=== PATIENT | female | born 1970 | race Caucasian/White ===

== ENCOUNTER 2020-03-30 11:49 | Emergency (ER) | payer OTHER ==
--- NOTE | 2020-03-30 16:02 | ER ---
Nurse's Notes [facility] Name: Snehal Viramontes Age: 50 yrs Sex: Female : 1970 Arrival Date: 03/30/2020 Time: 11:52 Bed 9 Private MD: Lupe Pinon Diagnosis: Cutaneous abscess of left axilla;Low back pain Presentation: 03/30 12:15 Chief complaint: Patient states: 1. Left axilla abscess for 4 days. No drainage. 2. ll1 Hurt back at work, pain to left lower back for 2 days. Coronavirus screen: Proceed with normal triage. Patient denies a cough. Patient denies shortness of breath or difficulty breathing. Patient denies measured and/or subjective temperature greater than 100.4F prior to today's visit. Patient denies travel on a cruise ship or to a country the [facility] currently lists as an affected area. Patient denies contact with known and/or suspected case of COVID-19. Ebola Screen: Patient denies travel to an Ebola-affected area in the 21 days before illness onset. Initial Sepsis Screen: Does the patient meet any 2 criteria? HR > 90 bpm. No. Patient's initial sepsis screen is negative. Risk Assessment: Do you want to hurt yourself or someone else? Patient reports no desire to harm self or others. Onset of symptoms was March 26, 2020. 12:15 Method Of Arrival: Ambulatory ll1 12:15 Acuity: EH 3 ll1 Historical: - Allergies: 12:18 No Known Allergies; ll1 - PMHx: 12:18 Back pain; Umbilical hernia; DDD; ll1 - PSHx: 12:18 ; ll1 - Immunization history:: Flu vaccine is not up to date. - Social history:: Smoking status: Patient denies any tobacco usage or history of. Patient uses alcohol, only on a social basis. Patient/guardian denies using street drugs, tobacco products. Vital Signs: 12:15 BP 117 / 82; Pulse 100; Resp 17; Temp 98.0; Pulse Ox 100% ; Pain 10/10; ll1 ED Course: 11:52 Patient arrived in ED. mr 11:52 Lupe Pinon is Private Physician. mr 12:17 Triage completed. ll1 12:18 Arm band placed on Patient notified of wait time. ll1 15:30 Kirk Gerardo NP is PHCP. pm1 15:30 Pritesh Moreno MD is Attending Physician. pm1 16:02 Sonia Garcia RN is Primary Nurse. ss 16:40 No provider procedures requiring assistance completed. Patient did not have IV access ss during this emergency room visit. 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 Exp: ss 10/31/2021. Lot #: [id number]. } Route: IM; Site: left deltoid; 16:39 Follow up: Response: No adverse reaction 16:24 Drug: Lidoderm 5 % (700 mg/patch) 1 patches Route: Topical; Site: affected area; ss Outcome: 16:01 Discharge ordered by MD. pm1 16:40 Discharged to home ambulatory. ss 16:40 Condition: good 16:40 Discharge instructions given to patient, Instructed on discharge instructions, follow up and referral plans. medication usage, Demonstrated understanding of instructions, follow-up care, medications. 16:40 Patient left the ED. Signatures: Rebeca Mcmanus mr Sonia Garcia, ANGELIQUE RN Kirk Gerardo NP CHICLE GRINDER FEEDER pm1 Gissell Fink RN RN 1
--- NOTE | 2020-03-30 16:02 | EDPHYS ---
Physician Documentation [facility] Name: Snehal Viramontes Age: 50 yrs Sex: Female : 1970 Arrival Date: 03/30/2020 Time: 11:52 Bed 9 Private MD: Lupe Pinon ED Physician Pritesh Moreno HPI: 03/30 16:01 This 50 yrs old Female presents to ER via Ambulatory with complaints of pm1 Abscess, Back Pain. 16:01 The patient presents with an abscess of the left axilla. Description: raised. pm1 16:01 Onset: The symptoms/episode began/occurred 4 day(s) ago. Possible cause(s): possibly pm1 ingrown hair from shaving. Associated signs and symptoms: Pertinent negatives: discharge, drainage, fever. Modifying factors: the symptoms are alleviated by nothing, the symptoms are aggravated by attempting to squeeze and express. Severity of symptoms: in the emergency department the symptoms are actually worse. The patient has experienced similar episodes in the past, a few times, Has had left axillary abscesses in the past. The patient has not recently seen a physician. 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 No incontinence, radiating pain, numbness or tingling. Improved with positioning and worsened with movement of left lower leg and walking. Historical: - Allergies: 12:18 No Known Allergies; ll1 - PMHx: 12:18 Back pain; Umbilical hernia; DDD; ll1 - PSHx: 12:18 ; ll1 - Immunization history:: Flu vaccine is not up to date. - Social history:: Smoking status: Patient denies any tobacco usage or history of. Patient uses alcohol, only on a social basis. Patient/guardian denies using street drugs, tobacco products. ROS: 16:01 Constitutional: Negative for fever, chills, and weight loss, Cardiovascular: Negative pm1 for chest pain, palpitations, and edema, Respiratory: Negative for shortness of breath, cough, wheezing, and pleuritic chest pain, Abdomen/GI: Negative for abdominal pain, nausea, vomiting, diarrhea, and constipation. 16:01 : Negative for injury, bleeding, discharge, and swelling, MS/Extremity: Negative for injury and deformity. 16:01 Neuro: Negative for headache, weakness, numbness, tingling, and seizure. 16:01 Back: Positive for of the sacrum, pain, Negative for radiated pain. 16:01 Skin: Positive for abscess, of the left axilla, Negative for cellulitis. Exam: 16:16 Constitutional: This is a well developed, well nourished patient who is awake, alert, pm1 and in no acute distress. Head/Face: Normocephalic, atraumatic. Neck: Trachea midline, no thyromegaly or masses palpated, and no cervical lymphadenopathy. Supple, full range of motion without nuchal rigidity, or vertebral point tenderness. No Meningismus. 16:16 Skin: Warm, dry with normal turgor. Normal color with no rashes, no lesions, and no evidence of cellulitis. MS/ Extremity: Pulses equal, no cyanosis. Neurovascular intact. Full, normal range of motion. 16:16 Cardiovascular: Exam negative for acute changes, Rate: normal, Rhythm: regular, Pulses: no pulse deficits are appreciated. 16:16 Respiratory: Exam negative for acute changes, respiratory distress, shortness of breath. 16:16 Abdomen/GI: Exam negative for acute changes, Inspection: abdomen appears normal, Palpation: abdomen is soft and non-tender, in all quadrants. 16:16 Back: vertebral tenderness, is appreciated at coccyx. 16:16 Skin: left axilla with 1.5 phlegmon. Needle aspiration with sterile technique. Prepared with Betadine. No drainage or pus present. No surrounding cellulitis. 16:16 Neuro: Exam negative for acute changes, Orientation: is normal, Mentation: is normal, Motor: is normal, moves all fours, strength is 5/5 in all extremities, Sensation: is normal, no obvious gross deficits. Vital Signs: 12:15 BP 117 / 82; Pulse 100; Resp 17; Temp 98.0; Pulse Ox 100% ; Pain 10/10; ll1 MDM: 15:39 Patient medically screened. [facility] 16:01 Data reviewed: vital signs. Data interpreted: Pulse oximetry: on room air is 100 %. pm1 Interpretation: normal. Counseling: I had a detailed discussion with the patient and/or guardian regarding: the historical points, exam findings, and any diagnostic results supporting the discharge/admit diagnosis, the need for outpatient follow up, to return to the emergency department if symptoms worsen or persist or if there are any questions or concerns that arise at home. 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 Exp: ss 10/31/2021. Lot #: [id number]. } Route: IM; Site: left deltoid; 16:39 Follow up: Response: No adverse reaction 16:24 Drug: Lidoderm 5 % (700 mg/patch) 1 patches Route: Topical; Site: affected area; ss Disposition: 20:36 Co-signature as Attending Physician, Pritesh Moreno MD I agree with the assessment and cipriano plan of care. Disposition: 03/30/20 16:01 Discharged to Home. Impression: Cutaneous abscess of left axilla, Low back pain. - Condition is Stable. - Discharge Instructions: Skin Abscess, Back Pain, Adult. - Prescriptions for Lidoderm 5 % Topical adhesive patch,medicated - apply 1 patch by TRANSDERMAL route once daily As needed; 30 Transdermal Patch. Bactrim DS 800- 160 mg Oral Tablet - take 1 tablet by ORAL route every 12 hours for 10 days; 20 tablet. Tylenol- Codeine #3 300-30 mg Oral Tablet - take 2 tablets by ORAL route every 6 hours As needed; 20 tablet. Cyclobenzaprine 10 mg Oral Tablet - take 1 tablet by ORAL route every 8 hours As needed; 30 tablet. - Medication Reconciliation Form, Thank You Letter, Antibiotic Education, Prescription Opioid Use form. - Follow up: Emergency Department; When: As needed; Reason: Worsening of condition. Follow up: Private Physician; When: 2 - 3 days; Reason: Recheck today's complaints, Continuance of care, Re-evaluation by your physician. - Problem is new. - Symptoms have improved. Signatures: Pritesh Moreno MD MD cha Smirch, Shelby, RN RN Kirk Gerardo NP [employer] INTERN pm1 Gissell Fink RN RN ll1 Corrections: (The following items were deleted from the chart) 16:40 16:01 03/30/2020 16:01 Discharged to Home. Impression: Cutaneous abscess of left ss axilla; Low back pain. Condition is Stable. Forms are Medication Reconciliation Form, Thank You Letter, Antibiotic Education, Prescription Opioid Use. Follow up: Emergency Department; When: As needed; Reason: Worsening of condition. Follow up: Private Physician; When: 2 - 3 days; Reason: Recheck today's complaints, Continuance of care, Re-evaluation by your physician. Problem is new. Symptoms have improved. pm1
[2020-03-30] MEDS ORDERED: TETANUS & DIPHTHERIA TOX,ADULT 0.5 ML VIAL ONE (16:24)
[2020-03-30] MEDS ORDERED: KETOROLAC 30 MG/ML INJ ONE (16:24)
[2020-03-30] MEDS ORDERED: LIDOCAINE 4% PATCH ONE (16:24)
[2020-03-30 16:59] VITALS: BP 117/82; TEMP 98; O2SAT 100
== END 2020-03-30 16:40 | disposition home or self-care (01) ==
LOC: ER 11:49
DX: L02.412 Cutaneous abscess of left axilla (principal); Z23 Encounter for immunization
CPT/HCPCS: 90471; 90714; 96372; 99283

== ENCOUNTER 2020-05-06 11:04 | Emergency (ER) | payer OTHER ==
--- OUTSIDE RECORDS SUMMARY | 2020-05-06 12:13 | XMS REPORT | Encounter Summary ---
:1970 Author Care Team Providers Name Role Phone Bev Pinon [facility] Primary Care Provider [phone] Reason for Visit New Patient Instructions 1. Umbilical hernia 2. Right inguinal hernia inguinal hernia: care inst ructions 3. Inguinal pain Discussion Note: None recorded. Plan of Care Reminders Provider Appointments None recorded. Lab None recorded. Referral None recorded. Procedures None recorded. Surgeries None recorded. Imaging None recorded. Medications Name Start Date gabapentin 400 mg caps hydroxyzine hcl 50 mg tabs linzess 145 mcg caps methocarbamol 500 mg tabs sertraline hcl 50 mg tabs Medications Administered None recorded. Vitals Height Weight BMI Blood Pressure 5 ft 3.5 in 108.2 lbs 18.9 kg/m2 110/70 mm[Hg] Results Lab Results None recorded. Allergies Code Code System Name Reaction Severity Status Onset NKDA Problems No Known Problems Procedures Date Name Performed by 03/08/2020 CT, Abdomen + Pelvis, W/wo [facility] (Scheduling) Contrast [address] [place], [place] [id number] (Work Place) 03/08/2020 CT, Abdomen + Pelvis, W/o Contrast [facility] (Scheduling) [address] [place], [place] [id number] (Work Place) Vaccine List None recorded. Social History Tobacco Smoking Status Never Smoker Past Encounters 03/08/2020 Umbilical Hernia; Right Inguinal Hernia; Inguinal Pain Brad Walker, DO: [address] [facility] [address], [place] [address], Ph. [phone] History of Present Illness Hernia Reported By: Patient HPI: Location: right, inguinal, u mbilical port site. Quality: tender, bulging. Severity: moderate. Duration: unknown. Onset/Timing: lifting. Context: no history of chron ic liver disease, no family history of substance abuse. Alleviating factors: rest. Aggravating factors: bending over. Associated Symptoms: n o nausea, no vomiting, no swelling/redness, no dysuria, no changes in ur inary frequency, no hematuria, no nocturia, no lower back pain, tenderne ss Note: Umbilical and right inguinal hernia Review of Systems General Surgery ROS Reported By: Patient Constitutional: Constitutional: no fever, no night sweats, no significant weight gain, no significant weight loss, no exercise intolerance Eyes: Eyes: no dry eyes, no irrita tion, no vision change ENMT: Ears: no difficulty hearing, no ear pain. Nose: no frequent nosebleeds, no nose/sinus pr oblems. Mouth/Throat: no sore throat, no bleeding gums, no snoring , no dry mouth, no mouth ulcers, no oral abnormalities, no teeth problems, No Post Nasal Dripping, Constantly clearing the thro at, hiccups, itching throat, (normal) weak voice: constant Respiratory: Respiratory: no cough, no wh eezing, no shortness of breath, no coughing up blood Cardiovascular: Cardiovascular: no chest darron n, no arm pain on exertion, no shortness of breath when wal bill, no shortness of breath when lying down, no palpitations, no kn own heart murmur Gastrointestinal: Gastrointestinal: no vomitin g, normal appetite, no diarrhea, not vomiting blood, abdominal pa in Genitourinary: Genitourinary: no incontinen ce, no difficulty urinating, no hematuria, no increased freq uency Musculoskeletal: Musculoskeletal: no muscle a ches, no muscle weakness, no arthralgias/joint pain, no b ack pain, no swelling in the extremities Integumentary: Skin: no abnormal mole, no j aundice, no rashes Neurologic: Neurologic: no loss of consc iousness, no weakness, no numbness, no seizures, no dizziness, no h eadaches Physical Exam General Surgery Exam (JYoung ) Reported By: Patient Head: Head: normocephalic, atrauma tic Neck: Neck: no enlargement, no jug ular venous distention, no lymphadenopathy Breast/Thorax: Breast: unlabored Cardiovascular: Heart Auscultation: regular rate and rhythm, no murmurs, no gallops, no rubs Lungs: CTAB breath sounds normal, g ood air movement, clear to auscultation, no wheezing, no rales/crackl es, no rhonchi Back: Lumbar / Lumbosacral Spine n ormal flexion, normal extension, no spasms, palpation tenderness none Abdomen: Inspection and Palpation: so ft, non-distended, no tenderness, no masses. Hernia: right inguin al, umbilical Neurologic: Cranial Nerves: grossly inta ct Notes: Upon P/E umbilical hernia an d right inguinal hernia present. Patient was examined in multiple pos itions.
--- OUTSIDE RECORDS SUMMARY | 2020-05-06 12:13 | XMS REPORT | Continuity of Care Document ---
:[address] [facility] t Address [address] [place] [address] Care Team Providers Name Role Phone Unavailable Unavailable Unavailable Payers Payer Name Policy Type Policy Number Effective Date Expiration Date S ource Problems This patient has no known problems. Allergies, Adverse Reactions, Alerts Allergy Allergy Status Severity Reaction(s) Onset Inactive Treating Comm ents Source Name Type Date Date Clinician No Known DA Active U 2018- [facility] 0-23 Clear s 00:00: Liu 00 [facility] No Known DA Active U [facility] 2-18 [place] [facility] 00:00: d 00 [facility] No Known DA Active U 2012- [facility] 6-27 [place] [facility] 00:00: d 00 [facility] Social History Smoking Status Start Date Stop Date Source Never Smoker [facility] Medications Ordered Filled Start Stop Current Ordering Indication Dosage Frequency Signature Comments Components Source Medication Medication Date Date Medication? Clinician (SIG) Name Name gabapentin gabapentin No gabapentin [facility] 400 mg caps 400 mg caps 400 mg da caps [facility] hydroxyzine hydroxyzine No hydroxyzin [facility] hcl 50 mg hcl 50 mg e hcl 50 da tabs tabs mg tabs [facility] linzess linzess No linzess [facility] 145 mcg 145 mcg 145 mcg da caps caps caps [facility] methocarbam methocarbam No methocarba [facility] ol 500 mg ol 500 mg mol 500 da tabs tabs mg tabs [facility] sertraline sertraline No sertraline [facility] hcl 50 mg hcl 50 mg hcl 50 mg da tabs tabs tabs [facility] Vital Signs Vital Name Observation Time Observation Value Comments Source BP Diastolic 2020-03-08 00:00:00 70 mm[Hg] [facility] Height 2020-03-08 00:00:00 63.5 [in_i] [facility] BMI (Body Mass 2020-03-08 00:00:00 18.9 kg/m2 [facility] BP Systolic 2020-03-08 00:00:00 110 mm[Hg] [facility] Body Weight 2020-03-08 00:00:00 108.2 [lb_av] [facility] Procedures Procedure Date / Time Performed Performing Clinician Sour e CT, abdomen + pelvis, 2020-03-08 00:00:00 [facility] w/wo contrast Group CT, abdomen + pelvis, 2020-03-08 00:00:00 [facility] w/o contrast Group Encounters Start End Encounter Admission Attending Care Care Encounter Source Date/Time Date/Time Type Type Clinicians Facility Department ID 2020-03-08 2020-03-08 Brad [facility] [place] - [id number] M [facility] 00:00:00 00:00:00 Aaron DO: [facility] [address] [place] [address] [facility] - [address], [facility], [place] [address] , Ph. [phone] 2019-08-31 2019-08-31 Emergency E [facility] [id number] 14:54:00 14:54:00 [facility] Results Test Description Test Time Test Comments Results Result Comments Source SURGICAL SPECIMENS 2018-07-28 09:58:00 RUN DATE: 07/28/18 [facility] *LIVE* PAGE 1 RUN TIME: 957 Specimen Inquiry RUN USER: INTERFACE PATIENT: JIGNESH SILVA LOC: [place] U #: [id number] AGE/SX: 48/F ROOM: [facility] RE07/10/18REG DR: Chuckie Leija MD : 70 BED: 3 DIS: 07/26/18 STATUS: DIS IN TLOC: SPEC #: [id number] RECD: 07/25/18 STATUS: SOUEthan REQ #: [id number] GREG: 07/25/[address] [facility] [address]: Chuckie Leija MD ENTERED: 07/27/18 SP TYPE: SURG SPEC OTHR DR: No Primary or Family Physician Self Referred Ania Maynard MD, Kinjal MD Ghosh, Subrata MD Lakhani, Asif MD Loya,Darrel Solano,Nnamdi Jaimes,Waqar Rod,Tracie Barnett MD, MDORDERED: GM LEVEL 4 CODES: [id number] - RECTUM, NOS COPIES TO: No Primary or Family Physician Self Referred Ania Maynard MD [address] [place] [address] Kayla Rene MD [address] [facility] [place] [address] Marlon Davies MD [address] [facility] [address] [place] [address] Ike Collins MD [address] [place], [place] [address] [place] [address] [place] Z[place] [address] [facility] [address] [place] [address] [email or web address] CONTINUED ON NEXT PAGE RUN DATE: 07/28/18 [facility] *LIVE* PAGE 2 RUN TIME: 957 Specimen Inquiry RUN USER: INTERFACE SPEC #: [id number] PATIENT: JIGNESH SILVA #[id number] (Continued)--------- --- COPIES TO: (Continued) Nanmdi Solano MD [address], [address] [place] [address] Chuckie Leija MD [address] [place] [address] Waqar Jaimes MD [address] [facility] [address] [place] [address] Timur Rod MD [address] [place] [address] Tracie Valencia MD [address] [address] PROCEDURES: LEVEL 4 (Incomplete) TISSUES: 1. RECTUM, NOS - Rectum, bx. FINAL DIAGNOSIS Rectum, bx.: Mild chronic inflammation. GROSS AND MICROSCOPIC GROSS EXAMINATION: Received is/are the specimen/s designated with the appropriate dimensions and block designation: 1. Bx: One segment of pink-ortega tissue, measuring up to 0.4 cm. in greatest dimension. MICROSCOPIC EXAMINATION: Sections of the "Rectum, bx." reveal changes of mild chronic proctitis. A mild inflammatory infiltrate is present in the lamina propria. There is mild crypt architectural distortion. CONTINUED ON NEXT PAGE RUN DATE: 07/28/18 [facility] *LIVE* PAGE 3 RUN TIME: 957 Specimen Inquiry RUN USER: INTERFACE SPEC #: [id number] PATIENT: JIGNESH SILVA #[id number] (Continued)--------- --- POST-OP DIAGNOSIS Proctitis PRE-OP DIAGNOSIS Dysphagia, abnormal CT imaging Signed SIGNATURE ON FILE Jessica Saleem MD 07/28/18 0958 END OF REPORT SURGICAL SPECIMENS 2018-07-25 08:01:00 RUN DATE: 07/25/18 [facility] *LIVE* PAGE 1 RUN TIME: 800 Specimen Inquiry RUN USER: INTERFACE PATIENT: JIGNESH SILVA LOC: [facility] U #: [id number] AGE/SX: 48/F [place] [facility] [place]10[facility]18[facility] DR: Chuckie Leija MD : 70 BED: 1 DIS: STATUS: ADM IN TLOC: SPEC #: [id number] RECD: 07/15/18 STATUS: KRIS REJanis #: [id number] GREG: 07/15/[address] [facility] [address]: Chuckie Leija MD ENTERED: 07/25/18 SP TYPE: SURG SPEC OTHR DR: No Primary or Family Physician Self Referred Ania Maynard MD, Kinjal MD Ghosh, Subrata MD Lakhani, Asif MD Loya, Altaf MD [place],Nnamdi Jaimes,Waqar Rod,Timur Valencia,Tracie FRAZIERORDERED: LEVEL 4 CODES: [id number] - VERTEBRA, NOS COPIES TO: No Primary or Family Physician Self Referred Ania Maynard MD [address] [facility] [address] [place] [address] Kayla Rene MD [address] [place] [address] Marlon Davies MD [address] [facility] [address] [place] [address] Ike Collins MD [address] [place] [address] [place] [address] [facility] [address] [place] [address] [email or web address] CONTINUED ON NEXT PAGE RUN DATE: 07/25/18 [facility] *LIVE* PAGE 2 RUN TIME: 08 Specimen Inquiry RUN USER: INTERFACE SPEC #: [id number] PATIENT: JIGNESH SILVA #[id number] (Continued)--------- --- COPIES TO: (Continued) Nnamdi Solano MD [address] [facility] [address] [place] [address] Chuckie Leija MD [address] [place] [address] Waqar Jaimes MD [address] [facility] [address] [place] [address] Timur Rod MD [address] [place] [address] Tracie Valencia MD [address] [place] [address] PROCEDURES: GM LEVEL 4 (Incomplete) TISSUES: 1. VERTEBRA, NOS - Bone, L3, bx. FINAL DIAGNOSIS Bone, L3, bx.: Hypercellular bone marrow with slight increase in plasma cells (5%); plasma cells are polyclonal and the staining is nonspecific; AFB and GMS stains are negative for acid-fast and fungal organisms. GROSS AND MICROSCOPIC GROSS EXAMINATION: Received in formalin and labeled L3 bone biopsy is a bone biopsy with hemorrhage that measures up to 1.7 cm in greatest dimensions. Entirely submitted. MICROSCOPIC EXAMINATION: Sections of the "Bone, L3, bx." reveal changes of callus formation as well as bone marrow elements and hemorrhage. The bone marrow is hypercellular with increased plasma cells (5%). There is diffuse staining and nonspecific staining for plasma cells. AFB and GMS stains are negative for acid-fast and fungal organisms. (When special stains have been reviewed, the appropriate positive/negative controls have been reviewed and are appropriately positive/negative). CONTINUED ON NEXT PAGE RUN DATE: 07/25/18 [facility] *LIVE* PAGE 3 RUN TIME: 800 Specimen Inquiry RUN USER: INTERFACE SPEC #: [id number] PATIENT: RICARDOJIGNESH #[id number] (Continued)--------- --- POST-OP DIAGNOSIS None given PRE-OP DIAGNOSIS Depression, alcoholism Cirrhosis, neuropathy, multiple compression fractures REVIEWED BY: Signed SIGNATURE ON Jessica Burrell Elsa FRAZIER 07/25/18 0801 END OF REPORT
[2020-05-06] MEDS ORDERED: TOBRAMYCIN SULF 0.3% OPTH OINT ONE (12:27)
[2020-05-06] MEDS ORDERED: TETRACAINE HCL 0.5% 4ML OPTH ONE (12:27)
[2020-05-06] MEDS ORDERED: FLUORESCEIN SODIUM 1 MG/WRAP ONE (12:36)
--- NOTE | 2020-05-06 12:58 | EDPHYS ---
Physician Documentation [facility] Name: Snehal Viramontes Age: 50 yrs Sex: Female : 1970 Arrival Date: 05/06/2020 Time: 11:06 Bed 20 Private MD: TATIANA Physician Pritesh Moreno HPI: 05/06 12:12 This 50 yrs old Female presents to ER via Ambulatory with complaints of Eye cipriano Pain. 12:12 The patient is experiencing foreign body sensation. Onset: The symptoms/episode cipriano began/occurred 3 day(s) ago. 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 - Social history:: Smoking status: Patient denies any tobacco usage or history of. - Family history:: not pertinent. ROS: 12:12 Constitutional: Negative for fever, chills, and weight loss, ENT: Negative for injury, cipriano pain, and discharge, Neck: Negative for injury, pain, and swelling, Cardiovascular: Negative for chest pain, palpitations, and edema, Respiratory: Negative for shortness of breath, cough, wheezing, and pleuritic chest pain, Abdomen/GI: Negative for abdominal pain, nausea, vomiting, diarrhea, and constipation, Back: Negative for injury and pain, : Negative for injury, bleeding, discharge, and swelling, MS/Extremity: Negative for injury and deformity, Skin: Negative for injury, rash, and discoloration, Neuro: Negative for headache, weakness, numbness, tingling, and seizure, Psych: Negative for depression, anxiety, suicide ideation, homicidal ideation, and hallucinations, Allergy/Immunology: Negative for hives, rash, and allergies, Endocrine: Negative for neck swelling, polydipsia, polyuria, polyphagia, and marked weight changes, Hematologic/Lymphatic: Negative for swollen nodes, abnormal bleeding, and unusual bruising. 12:12 Eyes: Positive for discharge, foreign body sensation, matting, pain, tearing, of the outer aspect of conjuctiva of left eye, iris of left eye and inner aspect of conjunctiva of left eye. Exam: 12:12 Constitutional: This is a well developed, well nourished patient who is awake, alert, cipriano and in no acute distress. Head/Face: Normocephalic, atraumatic. ENT: Nares patent. No nasal discharge, no septal abnormalities noted. Tympanic membranes are normal and external auditory canals are clear. Oropharynx with no redness, swelling, or masses, exudates, or evidence of obstruction, uvula midline. Mucous membranes moist. Neck: Trachea midline, no thyromegaly or masses palpated, and no cervical lymphadenopathy. Supple, full range of motion without nuchal rigidity, or vertebral point tenderness. No Meningismus. Chest/axilla: Normal chest wall appearance and motion. Nontender with no deformity. No lesions are appreciated. Cardiovascular: Regular rate and rhythm with a normal S1 and S2. No gallops, murmurs, or rubs. Normal PMI, no JVD. No pulse deficits. Respiratory: Lungs have equal breath sounds bilaterally, clear to auscultation and percussion. No rales, rhonchi or wheezes noted. No increased work of breathing, no retractions or nasal flaring. Abdomen/GI: Soft, non-tender, with normal bowel sounds. No distension or tympany. No guarding or rebound. No evidence of tenderness throughout. Back: No spinal tenderness. No costovertebral tenderness. Full range of motion. Skin: Warm, dry with normal turgor. Normal color with no rashes, no lesions, and no evidence of cellulitis. MS/ Extremity: Pulses equal, no cyanosis. Neurovascular intact. Full, normal range of motion. Neuro: Awake and alert, GCS 15, oriented to person, place, time, and situation. Cranial nerves II-XII grossly intact. Motor strength 5/5 in all extremities. Sensory grossly intact. Cerebellar exam normal. Normal gait. Psych: Awake, alert, with orientation to person, place and time. Behavior, mood, and affect are within normal limits. 12:12 Eyes: Periorbital structures: appear normal, no acute changes, Pupils: no acute changes, equal, round, and reactive to light and accomodation, Extraocular movements: intact throughout, Conjunctiva: normal, no acute changes, Anterior chamber: normal, no acute changes, Lids and lashes: appear normal, no acute changes, funduscopic exam reveals no obvious abnormalities, no acute changes, Visual medina: no acute changes, Nystagmus: is not appreciated. Vital Signs: 11:26 BP 124 / 97; Pulse 112; Resp 16; Temp 97.7; Pulse Ox 100% on R/A; Weight 49.9 kg; ss Height 5 ft. 4 in. (162.56 cm); Pain 9/10; 13:24 BP 129 / 87; Pulse 105; Resp 17; Pulse Ox 100% on R/A; jr10 11:26 Body Mass Index 18.88 (49.90 kg, 162.56 cm) ss MDM: 12:02 Patient medically screened. [facility] 12:19 Data reviewed: vital signs, nurses notes. 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 rate is 112 beats/min, rhythm is regular, Pulse oximetry: on room air is 100 %. Counseling: I had a detailed discussion with the patient and/or guardian regarding: the historical points, exam findings, and any diagnostic results supporting the discharge/admit diagnosis, the need for outpatient follow up, for definitive care, an opthalmologist. 12:58 ED course: explained to pt importance of follow up, return if symptoms worsens. [facility] 05/06 12:12 Order name: Eye Tray; Complete Time: 12:15 [facility] Administered Medications: 12:46 Drug: Tetracaine Drops 0.5 % 1 drops {Note: administered via Dr Moreno.} Route: jr10 Ophthalmic; Site: left eye; 13:13 Follow up: Response: No adverse reaction [facility] 12:46 Drug: Tobrex 0.3 % 1 application {Note: administered via Dr Moreno.} Route: jr10 Ophthalmic; Site: left eye; 13:13 Follow up: Response: No adverse reaction [facility] Disposition: 05/06/20 12:57 Discharged to Home. Impression: Ocular pain, left eye, Conjunctivitis. - Condition is Stable. - Discharge Instructions: Eye Foreign Body, Bacterial Conjunctivitis, Zijj-dt-Palv. - Prescriptions for Tobrex 0.3 % Ophthalmic ointment - apply 1 inch ribbon by OPHTHALMIC route 3 times per day; 3.5 gram. Tylenol- Codeine #3 300-30 mg Oral Tablet - take 2 tablets by ORAL route every 6 hours As needed; 20 tablet. - Medication Reconciliation Form, Thank You Letter, Antibiotic Education, Prescription Opioid Use form. - Follow up: Private Physician; When: 2 - 3 days; Reason: Recheck today's complaints, Continuance of care, Re-evaluation by your physician. Follow up: David Castro MD; When: 1 - 2 days; Reason: Recheck today's complaints, Re-evaluation by your physician. - Problem is new. - Symptoms have improved. Signatures: Pritesh Moreno MD MD cha Smirch, Shelby, RN RN Adeline Mcmanus RN RN jr10 Corrections: (The following items were deleted from the chart) 13:23 12:57 05/06/2020 12:57 Discharged to Home. Impression: Ocular pain, left eye; jr10 Conjunctivitis. Condition is Stable. Forms are Medication Reconciliation Form, Thank You Letter, Antibiotic Education, Prescription Opioid Use. Follow up: Private Physician; When: 2 - 3 days; Reason: Recheck today's complaints, Continuance of care, Re-evaluation by your physician. Follow up: David Castro; When: 1 - 2 days; Reason: Recheck today's complaints, Re-evaluation by your physician. Problem is new. Symptoms have improved. cipriano
--- NOTE | 2020-05-06 12:58 | ER ---
Nurse's Notes [facility] Name: Snehal Viramontes Age: 50 yrs Sex: Female : 1970 Arrival Date: 05/06/2020 Time: 11:06 Bed 20 Private MD: Diagnosis: Ocular pain, left eye;Conjunctivitis Presentation: 05/06 11:26 Chief complaint: Left eye pain and redness headache, and photosensitivity x 4 days. ss Coronavirus screen: At this time, the client does not indicate any symptoms associated with coronavirus-19. Ebola Screen: No symptoms or risks identified at this time. Mechanism of Injury: No Mechanism of Injury. The patient denies any loss of vision. Initial Sepsis Screen: Does the patient meet any 2 criteria? HR > 90 bpm. No. Patient's initial sepsis screen is negative. Does the patient have a suspected source of infection? No. Patient's initial sepsis screen is negative. Risk Assessment: Do you want to hurt yourself or someone else? Patient reports no desire to harm self or others. Onset of symptoms was May 02, 2020. Care prior to arrival: Medication(s) given: Tylenol, 1000 mg. 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 - Social history:: Smoking status: Patient denies any tobacco usage or history of. - Family history:: not pertinent. Screenin:15 Abuse screen: Denies threats or abuse. Denies injuries from another. Nutritional jr10 screening: No deficits noted. Tuberculosis screening: No symptoms or risk factors identified. Fall Risk None identified. Assessment: 12:15 General: Appears uncomfortable, Behavior is appropriate for age. Pain: Complains of jr10 pain in left eye. Neuro: No deficits noted. Respiratory: Airway is patent Respiratory effort is even, unlabored, Respiratory pattern is regular, symmetrical. EENT: Eyes are tearing on outer aspect of conjuctiva of left eye, iris of left eye and inner aspect of conjunctiva of left eye Sclera/Cornea are reddened in outer aspect of conjuctiva of left eye, iris of left eye and inner aspect of conjunctiva of left eye pt states "I was helping clean my roommates cat and I think I got some cat litter flung in my eye and instead of flushing my eye I just wiped it"; pt denies cat scratch to eye; redness and tearing with pain reported. Vital Signs: 11:26 BP 124 / 97; Pulse 112; Resp 16; Temp 97.7; Pulse Ox 100% on R/A; Weight 49.9 kg; ss Height 5 ft. 4 in. (162.56 cm); Pain 9/10; 13:24 BP 129 / 87; Pulse 105; Resp 17; Pulse Ox 100% on R/A; jr10 11:26 Body Mass Index 18.88 (49.90 kg, 162.56 cm) ED Course: 11:06 Patient arrived in ED. ds1 11:28 Triage completed. 11:28 Arm band placed on. 11:30 Adeline Mcmanus, ANGELIQUE is Primary Nurse. jr10 12:02 Pritesh Moreno MD is Attending Physician. [facility] 12:15 Patient has correct armband on for positive identification. Bed in low position. Call jr10 light in reach. Side rails up X2. 12:56 David Castro MD is Referral Physician. [facility] 13:23 No provider procedures requiring assistance completed. Patient did not have IV access jr10 during this emergency room visit. Administered Medications: 12:46 Drug: Tetracaine Drops 0.5 % 1 drops {Note: administered via Dr Moreno.} Route: jr10 Ophthalmic; Site: left eye; 13:13 Follow up: Response: No adverse reaction 10 12:46 Drug: Tobrex 0.3 % 1 application {Note: administered via Dr Moreno.} Route: jr10 Ophthalmic; Site: left eye; 13:13 Follow up: Response: No adverse reaction jr10 Outcome: 12:57 Discharge ordered by . [facility] 13:23 Discharged to home ambulatory. jr10 13:23 Condition: good 13:23 Discharge instructions given to patient, Instructed on discharge instructions, follow up and referral plans. Demonstrated understanding of instructions, follow-up care, medications, Prescriptions given X 1. 13:23 Patient left the ED. jr10 Signatures: Pritesh Moreno MD MD cha Sanford, Demi ds1 Sonia Garcia, RN RN ss Adeline Mcmanus RN RN jr10
[2020-05-06 14:06] VITALS: BP 124/97; TEMP 97.7; O2SAT 100
== END 2020-05-06 13:23 | disposition home or self-care (01) ==
LOC: ER 11:04
DX: H10.9 Unspecified conjunctivitis (principal)
CPT/HCPCS: 99283

== ENCOUNTER 2020-06-03 13:56 | Emergency (ER) | payer OTHER ==
--- OUTSIDE RECORDS SUMMARY | 2020-06-03 13:58 | XMS REPORT | Continuity of Care Document ---
:1970 Author Organization [facility] t Address [address] [place] [address] Care Team Providers Name Role Phone Unavailable Unavailable Unavailable Payers Payer Name Policy Type Policy Number Effective Date Expiration Date S ource Problems This patient has no known problems. Allergies, Adverse Reactions, Alerts Allergy Allergy Status Severity Reaction(s) Onset Inactive Treating Comm ents Source Name Type Date Date Clinician No Known DA Active U 2018- [facility] 0-23 Clear s 00:00: Liu 00 [facility] No Known DA Active U [facility] 2-18 [facility] 00:00: d 00 [facility] No Known DA Active U 2012- [facility] 6-27 [facility] Social History Smoking Status Start Date Stop Date Source Never Smoker [facility] Medications Ordered Filled Start [...] (Body Mass 2020-03-08 00:00:00 18.9 kg/m2 [facility] BP Systolic 2020-03-08 00:00:00 110 mm[Hg] [facility] Body Weight 2020-03-08 00:00:00 108.2 [lb_av] [facility] Procedures Procedure Date / Time Performed Performing Clinician Sour e CT, abdomen + pelvis, 2020-03-08 00:00:00 [facility] w/wo contrast Group CT, abdomen + pelvis, 2020-03-08 00:00:00 [facility] w/o contrast Group Encounters Start End Encounter Admission Attending Care Care Encounter Source Date/Time Date/Time Type Type Clinicians Facility Department ID 2020-03-08 2020-03-08 Brad [facility] [place] - [id number] M atagor 00:00:00 00:00:00 Aaron, DO: [facility] [address] [place] [address] [facility] - [address], [facility] [place] [address] , Ph. [phone] 2019-08-31 2019-08-31 Emergency E [id number] MH 14:54:00 14:54:00 [facility] Results Test Description Test Time Test Comments Results Result Comments Source SURGICAL SPECIMENS 2018-07-28 09:58:00 RUN DATE: 07/28/18 [facility] *LIVE* PAGE 1 RUN TIME: 957 Specimen Inquiry RUN USER: INTERFACE PATIENT: JIGNESH SILVA LOC: [place] U #: [id number] AGE/SX: 48/F [place] [facility] [place]18REG DR: Chuckie Leija MD : 70 BED: 3 DIS: 07/26/18 STATUS: DIS IN TLOC: SPEC #: [id number] RECD: 07/25/18 STATUS: KRIS REQ #: [id number] GREG: 07/25/18 [facility] DR: Chuckie Leija MD ENTERED: 07/27/18 SP TYPE: SURG SPEC OTHR DR: No Primary or Family Physician Self Referred Ania Maynard MD, Kinjal MD Ghosh, Subrata MD Lakhani,Ike Zuniga,Darrel Solano,Nnamdi Jaimes,Timur Rodriguez MD, MD, Nina MDORDERED: GM LEVEL 4 CODES: [id number] - RECTUM, NOS COPIES TO: No Primary or Family Physician Self Referred Ania Maynard MD [address] [place] [address] Kayla Rene MD [address] [place] [address] Marlon Davies MD [address] [place], [place] [address] [place] [address] Ike Collins MD [address] [place] [address] [place] [address] [facility] [address] [place] [address] [email or web address] CONTINUED ON NEXT PAGE RUN DATE: 07/28/18 [facility] *LIVE* PAGE 2 RUN TIME: 957 Specimen Inquiry RUN USER: INTERFACE SPEC #: [id number] PATIENT: JIGNESH SILVA #[id number] (Continued)--------- --- COPIES TO: (Continued) Nnamdi Solano MD [address] [place] [address] Chuckie Leija MD [address] [place] [address] Waqar Jaimes MD [address] [facility] [address] [place] [address] Timur Rod MD [address] [place] [address] Tracie Valencia MD [address] [facility] [address] [place] [address] PROCEDURES: LEVEL 4 (Incomplete) TISSUES: 1. RECTUM, [...] CONTINUED ON NEXT PAGE RUN DATE: 07/28/18 [facility] *LIVE* PAGE 3 RUN TIME: 957 Specimen Inquiry RUN USER: INTERFACE SPEC #: [id number] PATIENT: JIGNESH SILVA #[id number] (Continued)--------- --- POST-OP DIAGNOSIS Proctitis PRE-OP DIAGNOSIS Dysphagia, abnormal CT imaging Signed SIGNATURE ON FILE Jessica Saleem MD 07/28/18 0958 END OF REPORT SURGICAL SPECIMENS 2018-07-25 08:01:00 RUN DATE: 07/25/18 [facility] *LIVE* PAGE 1 RUN TIME: 800 Specimen Inquiry RUN USER: INTERFACE PATIENT: JIGNESH SILVA LOC: [facility] U #: [id number] AGE/SX: 48/F ROOM: [facility] RE07/10/18ROZINA DR: Chuckie Leija MD : 70 BED: 1 DIS: STATUS: ADM IN TLOC: SPEC #: [id number] RECD: 07/15/18 STATUS: KRIS REQ #: [id number] GREG: 07/15/[address]: Chuckie Leija MD ENTERED: 07/25/18 SP TYPE: SURG SPEC OTHR DR: No Primary or Family Physician Self Referred Ania Maynard MD, Kinjal MD Ghosh, Subrata MD Lakhani, Asif MD Loya, Altaf MD [place],Nnamdi Jaimse,Waqar Rod,Timur Valencia,Tracie FRAZIERORDERED: LEVEL 4 CODES: [id number] - VERTEBRA, NOS COPIES TO: No Primary or Family Physician Self Referred Ania Maynard MD [address] [facility] [address] [place] [address] Kayla Rene MD [address] [place] [address] Marlon Davies MD [address] [facility] [address] [place] [address] Ike Collins MD [address] [place] [address] [place] [address] [facility] [address] [place] [address] [email or web address] CONTINUED ON NEXT PAGE RUN DATE: 07/25/18 [facility] *LIVE* PAGE 2 RUN TIME: 800 Specimen Inquiry RUN USER: INTERFACE SPEC #: [id number] PATIENT: JIGNESH SILVA #[id number] (Continued)--------- --- COPIES TO: (Continued) Nnamdi Solano MD [address] [facility] [address] [place] [address] Chuckie Leija MD [address] [facility] [place] [address] Waqar Jaimes MD [address] [facility] [address] [place] [address] Timur Rod MD [address] [place] [address] Tracie Valencia MD [address] [place] [address] PROCEDURES: GM LEVEL 4 (Incomplete) TISSUES: 1. [...] CONTINUED ON NEXT PAGE RUN DATE: 07/25/18 [facility] *LIVE* PAGE 3 RUN TIME: 800 Specimen Inquiry RUN USER: INTERFACE SPEC #: [id number] PATIENT: RICARDOJIGNESH #[id number] (Continued)--------- --- POST-OP DIAGNOSIS None given PRE-OP DIAGNOSIS Depression, alcoholism Cirrhosis, neuropathy, multiple compression fractures REVIEWED BY: Signed SIGNATURE ON FILE HarpreetJessica abbott MD 07/25/18 0801 END OF REPORT
[2020-06-03 15:05] LABS: Protime INR 1.03
[2020-06-03 15:10] LABS: Absolute Lymphocytes (CBC) 1.8 K/uL (0.7-4.9); Basophils % 0.8 % (0-1.3); Hematocrit 38.1 % (36.0-45.0); MPV 7.5 fL (7.6-11.3); RBC Red Blood Cell Count 4.61 M/uL (3.86-4.86)
[2020-06-03 15:23] LABS: ALT/SGPT 55 U/L (12-78); AST/SGOT 41 U/L (15-37); Albumin 3.6 g/dL (3.4-5.0); Alkaline Phosphatase 91 U/L (45-117); BUN Blood Urea Nitrogen 9 mg/dL (7-18); Bicarbonate 23 mmol/L (21-32); Bilirubin Direct < 0.1 mg/dL (0-0.2); Bilirubin Total 0.4 mg/dL (0.2-1.0); Glucose Level 88 mg/dL (74-106); Magnesium 1.9 mg/dL (1.8-2.4); NT PRO-BNP 53 pg/mL (<125); Potassium 3.3 mmol/L (3.5-5.1); Protein, Total 7.5 g/dL (6.4-8.2); Sodium Level 141 mmol/L (136-145); Troponin (Emerg Dept Use Only) < 0.02 ng/mL (0.0-0.045)
[2020-06-03] MEDS ORDERED: DIAZEPAM 10 MG/2 ML INJ SYRINGE ONE (15:41)
--- NOTE | 2020-06-03 16:50 | RAD REPORT ---
EXAM DESCRIPTION: CT - Chest For Pe Angio - 06/03/2020 4:21 pm CLINICAL HISTORY: CHEST PAIN COMPARISON: Chest Single View dated 06/03/2020 TECHNIQUE: Dynamically enhanced 3 mm thick images of the chest were obtained during administration o f approximately 150mL Isovue 370 IV contrast. Coronal and oblique MIP reconstruction images were gene rated and reviewed. Exam utilizes a protocol to evaluate the pulmonary arterial tree. All CT scans are performed using dose optimization technique as appropriate and may include automated exposure control or mA/KV adjustment according to patient size. FINDINGS: No pulmonary emboli are identified. The aorta as imaged shows no acute or suspicious finding. No pericardial thickening or effusion. No focal mass or consolidation identified. Minimal atelectasis present in each posterior gutter. Very minimal amounts of ground-glass opacification are present in each lower lobe and in the right upper lobe. This is not a pattern suspicious for COVID-19 pneumonia. This may be minimal alveolar edema or additional atelectasis. Acute infectious process is unlikely. No pleural effusion or pleural thickeni ng. No mediastinal or hilar suspicious masses. No chest wall masses or abnormal axillary lymphadenopathy. Bilateral breast implants are in place. With the exception of T1, every thoracic vertebral body shows at least partial compression fracture d eformity. Findings are most pronounced in T7 and T9 where there is 70% compression fracture deformity . No pathologic component. Age of the fractures is uncertain. No paraspinal mass component. IMPRESSION: No pulmonary emboli identified. The T2-T12 vertebral bodies all show some degree of compression fracture deformity. This is most pron ounced in T7 and T9 where there is at least 70% compression. No pathologic component. Age of the compression fractures is unknown. No encroachment into the central canal. This is most lik veto an osteoporotic compression pattern. This is very advanced for age. Minimal areas of ground-glass opacification are present. This may be minimal edema, atelectasis or le ss likely infiltrate. This is not a pattern suspicious for COVID-19 pneumonia.
--- NOTE | 2020-06-03 16:59 | RAD REPORT ---
EXAM DESCRIPTION: RAD - Chest Single View - 06/03/2020 3:14 pm CLINICAL HISTORY: DYSPNEA COMPARISON: None TECHNIQUE: AP portable chest image was obtained 06/03/2020 3:14 pm . FINDINGS: Lungs are clear. Heart and vasculature are normal. No measurable pleural effusion and no p neumothorax. No acute bony abnormality seen. Distal portion of the descending thoracic aorta is tortu ous. No dilatation. Bilateral breast implants in place. IMPRESSION: No acute cardiopulmonary process.
--- NOTE | 2020-06-03 17:00 | EDPHYS ---
Physician Documentation [facility] Name: Snehal Viramontes Age: 50 yrs Sex: Female : 1970 Arrival Date: 06/03/2020 Time: 13:58 Bed 26 Private MD: Lupe Pinon ED Physician Michael Curtis HPI: 06/03 15:34 This 50 yrs old Female presents to ER via Ambulatory with complaints of snw Shortness Of Breath, High Blood Pressure. 15:34 The patient has shortness of breath at rest. Onset: The symptoms/episode began/occurred snw suddenly, 3 day(s) ago, feels a clutching or spasm in the right chest. Duration: The symptoms are continuous. The patient's shortness of breath has no apparent modifying factors. Associated signs and symptoms: Pertinent positives: chest pain, SOB. Severity of symptoms: At their worst the symptoms were moderate in the emergency department the symptoms are unchanged. The patient has not experienced similar symptoms in the past. It is unknown whether or not the patient has recently seen a physician, Sees Conrad Colindres. exposed to second hand smoke but is a non-smoker. 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 - Social history:: Smoking status: Patient denies any tobacco usage or history of. ROS: 15:31 Constitutional: Negative for fever, chills, and weight loss, Eyes: Negative for injury, snw pain, redness, and discharge, ENT: Negative for injury, pain, and discharge, Neck: Negative for injury, pain, and swelling, Cardiovascular: Positive for chest pain, negative for palpitations, and edema, Back: Negative for injury and pain, hx of "bad back" : Negative for injury, bleeding, discharge, and swelling, MS/Extremity: Negative for injury and deformity, Skin: Negative for injury, rash, and discoloration, Psych: Negative for depression, anxiety, suicide ideation, homicidal ideation, and hallucinations. 15:31 Respiratory: Positive for shortness of breath, at rest. feels like she is hyperventilating but can't catch her breath. 15:31 Neuro: Positive for light headedness. Exam: 15:30 Head/Face: Normocephalic, atraumatic. Eyes: Pupils equal round and reactive to light, snw extra-ocular motions intact. Lids and lashes normal. Conjunctiva and sclera are non-icteric and not injected. Cornea within normal limits. Periorbital areas with no swelling, redness, or edema. ENT: Nares patent. No nasal discharge, no septal abnormalities noted. Tympanic membranes are normal and external auditory canals are clear. Oropharynx with no redness, swelling, or masses, exudates, or evidence of obstruction, uvula midline. Mucous membranes moist. Neck: Trachea midline, no thyromegaly or masses palpated, and no cervical lymphadenopathy. Supple, full range of motion without nuchal rigidity, or vertebral point tenderness. No Meningismus. Chest/axilla: Normal chest wall appearance and motion. Nontender with no deformity. No lesions are appreciated. Cardiovascular: Regular rate and rhythm with a normal S1 and S2. No gallops, murmurs, or rubs. Normal PMI, no JVD. No pulse deficits. 15:30 Back: No spinal tenderness. No costovertebral tenderness. Full range of motion. 15:30 Skin: Warm, dry with normal turgor. Normal color with no rashes, no lesions, and no evidence of cellulitis. MS/ Extremity: Pulses equal, no cyanosis. Neurovascular intact. Full, normal range of motion. Neuro: Awake and alert, GCS 15, oriented to person, place, time, and situation. Cranial nerves II-XII grossly intact. Motor strength 5/5 in all extremities. Sensory grossly intact. Cerebellar exam normal. Normal gait. Psych: Awake, alert, with orientation to person, place and time. Behavior, mood, and affect are within normal limits. 15:30 Constitutional: The patient appears alert, awake, anxious, uncomfortable. 15:30 Respiratory: the patient does not display signs of respiratory distress, Respirations: accessory muscle usage, that is moderate, shallow respirations, tachypnea, that is moderate, Breath sounds: are clear throughout. 15:30 Abdomen/GI: Inspection: abdomen appears normal, easily reducible umbilical hernia, Bowel sounds: normal, Palpation: abdomen is soft and non-tender. 06/04 07:42 ECG was reviewed by the Attending Physician. kdr Vital Signs: 06/03 14:19 BP 124 / 102; Pulse 112; Resp 24; Temp 98.4(O); Pulse Ox 100% on R/A; Weight 49.9 kg; em Height 5 ft. 3 in. (160.02 cm); Pain 7/10; 14:23 BP 129 / 97; Pulse 97; Resp 20; Pulse Ox 98% on R/A; tw2 15:05 BP 123 / 96; Pulse 97; Resp 19; Pulse Ox 95% on R/A; tw2 15:57 BP 122 / 98; Pulse 90; Resp 20; Pulse Ox 98% on R/A; tw2 16:00 BP 119 / 91; Pulse 89; Resp 20; Pulse Ox 98% on R/A; tw2 16:56 BP 121 / 97; Pulse 88; Resp 20; Pulse Ox 100% on R/A; tw2 14:19 Body Mass Index 19.49 (49.90 kg, 160.02 cm) em MDM: 15:06 Patient medically screened. snw 17:02 Data reviewed: vital signs, nurses notes. Data interpreted: Pulse oximetry: on room air snw is 100 %. Interpretation: normal. Counseling: I had a detailed discussion with the patient and/or guardian regarding: the historical points, exam findings, and any diagnostic results supporting the discharge/admit diagnosis, lab results, radiology results, the need for outpatient follow up, to return to the emergency department if symptoms worsen or persist or if there are any questions or concerns that arise at home. 06/03 14:45 Order name: Basic Metabolic Panel; Complete Time: 15:24 06/03 14:45 Order name: CBC with Diff; Complete Time: 15:20 06/03 14:45 Order name: LFT's; Complete Time: 15:24 06/03 14:45 Order name: Magnesium; Complete Time: 15:24 06/03 14:45 Order name: NT PRO-BNP; Complete Time: 15:24 06/03 14:45 Order name: PT-INR; Complete Time: 15:21 06/03 14:45 Order name: Troponin (emerg Dept Use Only); Complete Time: 15:24 06/03 14:45 Order name: XRAY Chest (1 view); Complete Time: 17:02 tw2 06/03 14:45 Order name: EKG; Complete Time: 14:45 tw2 06/03 14:45 Order name: Cardiac monitoring; Complete Time: 14:45 tw2 06/03 14:45 Order name: EKG - Nurse/Tech; Complete Time: 14:45 tw2 06/03 15:30 Order name: CT Chest For PE Angio; Complete Time: 16:58 snw 06/03 14:45 Order name: IV Saline Lock; Complete Time: 14:51 tw2 06/03 14:45 Order name: Labs collected and sent; Complete Time: 14:51 tw06/03 14:45 Order name: O2 Per Protocol; Complete Time: 14:51 06/03 14:45 Order name: O2 Sat Monitoring; Complete Time: 14:51 tw2 EC/18 07:42 Rate is 94 beats/min. Rhythm is regular, Sinus Rhythm with No ectopy. QRS Potter is kdr Normal. HI interval is normal. QRS interval is normal. Clinical impression: NSR w/ Non-specific ST/T Changes. Administered Medications: 06/03 15:34 Drug: Valium 2 mg Route: IVP; Site: right antecubital; tw2 15:58 Follow up: Response: No adverse reaction; No change in condition tw2 17:15 Drug: Chloride 5 mg-325 mg 1 tabs Route: PO; tw2 17:19 Follow up: Response: No adverse reaction; pt states "i have taken this before with no tw2 problems" Disposition: 06/04 14:04 Co-signature as Attending Physician, Michael Curtis MD I agree with the assessment and kdr plan of care. Disposition: 06/03/20 16:59 Discharged to Home. Impression: Shortness of breath, Atelectasis, Wedge compression fracture of unspecified thoracic vertebra - uncertain age. - Condition is Stable. - Discharge Instructions: Atelectasis, Adult, Back Pain, Adult, Shortness of Breath, Back Injury Prevention. - Prescriptions for orphenadrine citrate 100 mg Oral Tablet Sustained Release - take 1 tablet by ORAL route 2 times per day As needed; 20 tablet. Albuterol Sulfate 90 mcg/actuation - inhale 1-2 puff by INHALATION route every 4-6 hours; 1 Inhaler. - Medication Reconciliation Form, Thank You Letter, Antibiotic Education, Prescription Opioid Use form. - Follow up: Emergency Department; When: As needed; Reason: Trouble breathing, Worsening of condition. Follow up: Lupe Pinon; When: 2 - 3 days; Reason: Recheck today's complaints, Continuance of care, Re-evaluation by your physician. Signatures: Dispatcher [employer] EDMS Michael Curtis MD MD [facility] Rebeka Fuller, BOTTLING SUPERVISOR-C BOTTLING SUPERVISOR-Csnw Tomi John, RN RN em Yissel Thibodeaux RN RN tw2 Corrections: (The following items were deleted from the chart) 06/03 17:20 16:59 06/03/2020 16:59 Discharged to Home. Impression: Shortness of breath; tw2 Atelectasis; Wedge compression fracture of unspecified thoracic vertebra - uncertain age. Condition is Stable. Forms are Medication Reconciliation Form, Thank You Letter, Antibiotic Education, Prescription Opioid Use. Follow up: Emergency Department; When: As needed; Reason: Trouble breathing, Worsening of condition. Follow up: Lupe Pinon; When: 2 - 3 days; Reason: Recheck today's complaints, Continuance of care, Re-evaluation by your physician. snw
--- NOTE | 2020-06-03 17:00 | ER ---
Nurse's Notes [facility] Name: Snehal Viramontes Age: 50 yrs Sex: Female : 1970 Arrival Date: 06/03/2020 Time: 13:58 Bed 26 Private MD: Lupe Pinon Diagnosis: Shortness of breath;Atelectasis;Wedge compression fracture of unspecified thoracic vertebra-uncertain age Presentation: 06/03 14:19 Chief complaint: Patient states: sent over from PCP for chest pressure and SOB that em started 3 days ago, denies N/V fever or cough. Coronavirus screen: Client denies travel out of the [place] in the last 14 days. Ebola Screen: Patient negative for fever greater than or equal to 101.5 degrees Fahrenheit, and additional compatible Ebola Virus Disease symptoms Patient denies exposure to infectious person. Patient denies travel to an Ebola-affected area in the 21 days before illness onset. No symptoms or risks identified at this time. Initial Sepsis Screen: Does the patient meet any 2 criteria? No. Patient's initial sepsis screen is negative. Does the patient have a suspected source of infection? No. Patient's initial sepsis screen is negative. Risk Assessment: Do you want to hurt yourself or someone else? Patient reports no desire to harm self or others. Onset of symptoms was May 31, 2020. 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 - Social history:: Smoking status: Patient denies any tobacco usage or history of. Screenin:06 Abuse screen: Denies threats or abuse. Nutritional screening: No deficits noted. tw2 Tuberculosis screening: No symptoms or risk factors identified. Fall Risk None identified. Assessment: 14:30 General: Appears in no apparent distress. slender, well groomed, Behavior is calm, tw2 cooperative, appropriate for age. Pain: Complains of pain in xyphoid area and mid-sternal area. Neuro: Level of Consciousness is awake, alert, obeys commands, Oriented to person, place, time, situation. Cardiovascular: Heart tones S1 S2 Capillary refill < 3 seconds Rhythm is regular. Respiratory: Reports shortness of breath at rest on exertion Airway is patent Respiratory effort is even, unlabored, Respiratory pattern is regular, symmetrical, Breath sounds are clear bilaterally. GI: Abdomen is flat, Bowel sounds present X 4 quads. : No signs and/or symptoms were reported regarding the genitourinary system. EENT: No signs and/or symptoms were reported regarding the EENT system. Derm: No signs and/or symptoms reported regarding the dermatologic system. Musculoskeletal: Range of motion: intact in all extremities. 15:08 Reassessment: Patient appears in no apparent distress at this time. No changes from tw2 previously documented assessment. Patient and/or family updated on plan of care and expected duration. Pain level reassessed. Patient is alert, oriented x 3, equal unlabored respirations, skin warm/dry/pink. 16:00 Reassessment: Patient appears in no apparent distress at this time. No changes from tw2 previously documented assessment. Patient and/or family updated on plan of care and expected duration. Pain level reassessed. Patient is alert, oriented x 3, equal unlabored respirations, skin warm/dry/pink. 16:56 Reassessment: Patient appears in no apparent distress at this time. No changes from tw2 previously documented assessment. Patient and/or family updated on plan of care and expected duration. Pain level reassessed. Patient is alert, oriented x 3, equal unlabored respirations, skin warm/dry/pink. 17:19 Reassessment: Patient appears in no apparent distress at this time. No changes from tw2 previously documented assessment. Patient and/or family updated on plan of care and expected duration. Pain level reassessed. Patient is alert, oriented x 3, equal unlabored respirations, skin warm/dry/pink. Vital Signs: 14:19 BP 124 / 102; Pulse 112; Resp 24; Temp 98.4(O); Pulse Ox 100% on R/A; Weight 49.9 kg; em Height 5 ft. 3 in. (160.02 cm); Pain 7/10; 14:23 BP 129 / 97; Pulse 97; Resp 20; Pulse Ox 98% on R/A; tw2 15:05 BP 123 / 96; Pulse 97; Resp 19; Pulse Ox 95% on R/A; tw2 15:57 BP 122 / 98; Pulse 90; Resp 20; Pulse Ox 98% on R/A; tw2 16:00 BP 119 / 91; Pulse 89; Resp 20; Pulse Ox 98% on R/A; tw2 16:56 BP 121 / 97; Pulse 88; Resp 20; Pulse Ox 100% on R/A; tw2 14:19 Body Mass Index 19.49 (49.90 kg, 160.02 cm) em ED Course: 13:58 Patient arrived in ED. mr 13:59 Phoenix Pinona is Private Physician. mr 14:21 Triage completed. em 14:22 Arm band placed on. em 14:30 Yissel Thibodeaux, RN is Primary Nurse. tw2 14:39 Placed in gown. Bed in low position. Call light in reach. [employer] clerk on. Pulse ox tw2 on. NIBP on. 14:51 Inserted saline lock: 22 gauge in right antecubital area, using aseptic technique. tw2 Blood collected. 15:05 Rebeka Fuller FNP-C is [facility]. snw 15:05 Michael Curtis MD is Attending Physician. snw 15:14 XRAY Chest (1 view) In Process Unspecified. EDMS 16:22 CT Chest For PE Angio In Process Unspecified. EDMS 16:58 Lupe Pinon is Referral Physician. snw 17:19 No provider procedures requiring assistance completed. IV discontinued, intact, tw2 bleeding controlled, No redness/swelling at site. Pressure dressing applied. Administered Medications: 15:34 Drug: Valium 2 mg Route: IVP; Site: right antecubital; tw2 15:58 Follow up: Response: No adverse reaction; No change in condition tw2 17:15 Drug: [place] 5 mg-325 mg 1 tabs Route: PO; tw2 17:19 Follow up: Response: No adverse reaction; pt states "i have taken this before with no tw2 problems" Intake: Outcome: 16:59 Discharge ordered by . snw 17:19 Discharged to home ambulatory. tw2 17:19 Condition: stable 17:19 Discharge instructions given to patient, Instructed on discharge instructions, follow up and referral plans. medication usage, Demonstrated understanding of instructions, follow-up care, medications, Prescriptions given X 2. 17:20 Patient left the ED. tw2 Signatures: Dispatcher [employer] EDRebeka Mendoza, [employer] TELEPHONIC RN-Brettw Rebeca Mcmanus Tomi Son, RN RN Yissel Shirley RN RN tw2 Corrections: (The following items were deleted from the chart) 14:39 14:39 EKG completed in triage. Results shown to . tw2 tw2 15:34 14:23 BP 129 / 97; Pulse 97bpm; Resp 17bpm; Pulse Ox 98% RA; tw2 tw2
[2020-06-03] MEDS ORDERED: HYDROCODONE/APAP 5/325 MG TAB ONE (17:26)
[2020-06-03 18:02] VITALS: TEMP 98.4
[2020-06-03 18:09] VITALS: BP 121/97; O2SAT 100
== END 2020-06-03 17:20 | disposition home or self-care (01) ==
LOC: ER 13:56
DX: J98.11 Atelectasis (principal); S22.000A Wedge compression fracture of unspecified thoracic vertebra, initial encounter for closed fracture
CPT/HCPCS: 93005; 85025; 80048; 36415; 83735; 85610; 80076; 84484; 83880; 71275; 71045; 96374; 99284; Q9967; J3360

== ENCOUNTER 2022-01-05 16:49 | Emergency (ER) | payer OTHER ==
--- OUTSIDE RECORDS SUMMARY | 2022-01-05 16:53 | XMS REPORT | Continuity of Care Document ---
:[address] [facility] t Address [address] [place] [address] Care Team Providers Name Role Phone Fartun HOWELL Primary Care Physician Unavailable RAMÍREZ Attending Clinician Unavailable SIFF Attending Clinician Unavailable Fartun HOWELL Attending Clinician Unavailable Saige Attending Clinician Unavailable MARY SHER Attending Clinician Unavailable Elsa SWENSON Attending Clinician Unavailable Fartun HOWELL Admitting Clinician Unavailable Saige Admitting Clinician Unavailable Payers Payer Name Policy Type Policy Number Effective Date Expiration Date [facility] [id number] 2020 00:00:00 MEDICARE PART A \\T\\ [id number] 2020 B 00:00:00 [facility] [id number] 2019 [employer] 00[place]00:00 (MEDICAID HMO) [facility] [id number] Problems This patient has no known problems. Allergies, Adverse Reactions, Alerts Allergy Allergy Status Severity Reaction(s) Onset Inactive Treating Comm ents Source Name Type Date Date Clinician MONOSODI DRUG Active Swelling Univer s UM INGREDI 3-04 ity of GLUTAMAT 00:00: [address] No Known DA Active U 2017-09 [facility] Allergie 0-23 Clear s 00:00: Liu [address] [place] [address] No Known DA Active U [facility] Allergie 2-18 [place] s 00:00: d 00 [facility] No Known DA Active U [facility] Allergie 6-27 [place] 00:00: d 00 [facility] NO KNOWN Drug Active Univers ALLERGIE Class ity of S [facility] Social History Smoking Status Start Date Stop Date Source Never Smoker [facility] Medications Ordered Filled Start [...] (Body Mass 2020-03-08 00:00:00 18.9 kg/m2 [facility] Medical Index) Group BP Systolic 2020-03-08 00:00:00 110 mm[Hg] [facility] Body Weight 2020-03-08 00:00:00 108.2 [lb_av] [facility] Procedures Procedure Date / Time Performed Performing Clinician Johana valdes CT, abdomen + pelvis, 2020-03-08 00:00:00 [facility] consultant Medical w/wo contrast Group CT, abdomen + pelvis, 2020-03-08 00:00:00 [facility] consultant Medical w/o contrast Group Encounters Start End Encounter Admission Attending Care Care Encounter Source Date/Time Date/Time Type Type Clinicians Facility Department ID 2017-04-26 Inpatient [facility] [id number] H arris 11:55:36 Health 2021-10-25 2021-10-25 Outpatient Teetee RAMÍREZ [facility] [id number] Univers 08:30:00 08:30:00 GLORIA [id number] [facility] 2021-08-25 2021-08-25 Outpatient KAYLIE VALDEZ [facility] [id number] [place] 00:00:00 00:00:[address] 2021-08-16 2021-08-16 Outpatient SIFF, KAYLIE [facility] [id number] [place] 00:00:00 00:00:[address] 2021-08-10 2021-08-10 Outpatient R DESIREE, [facility] [id number] Univers 14:30:00 14:30:00 GLORIA [id number] [facility] 2021-08-10 2021-08-10 Outpatient R RAMÍREZ, [facility] [id number] Univers 14:30:00 14:30:00 GLORIA [facility] 2021-05-12 2021-05-12 Outpatient SIFF, KAYLIE [facility] [id number] [place] 00:00:00 00:00:00 [address] 2021-04-26 2021-04-26 Outpatient SIFF, KAYLIE [facility] [id number] [place] 00:00:00 00:00:00 [address] 2021-04-26 2021-04-26 Outpatient SIFF, KAYLIE [facility] [id number] [place] 00:00:00 00:00:00 [address] i 2020-12-21 2020-12-21 Outpatient R AKINSIPE, [facility] [id number] Univers 07: 23:59:00 MARTIN it o [facility] 2020-12-21 2020-12-21 Outpatient R AKINSIPE, [facility] [id number] Univers 13:15:00 13:15:00 MARTIN [id number] ity [facility] 2020-12-21 2020-12-21 Outpatient Aaron_J MMG [facility] [id number] [place] 11:05:00 11:05:00 [facility] 2020-12-17 2020-12-17 Outpatient R AARON, [facility] [id number] Univers 13:30:00 13:30:00 JORDI [id number] [facility] 2020-12-15 2020-12-15 Outpatient R LEELA, [facility] [id number] Univers 10:00:00 10:00:00 SHELBI [facility] 2020-12-03 2020-12-03 Outpatient R AARON, [facility] [id number] Univers 15:00:00 15:00:00 JORDI [id number] lisbet [facility] 2020-12-03 2020-12-03 Outpatient R AARON, [facility] [id number] Univers 15:00:00 15:00:00 JORDI frausto [facility] 2020-11-18 2020-11-18 Outpatient R AKINSIPE, [facility] [id number] Univers 14:00:00 14:00:00 MARTIN lisbet o f [facility] 2020-08-04 2020-08-04 Outpatient Young_J MMG [facility] [id number] [place] 02:25:00 02:25:00 1118 [facility] 2020-04-04 2020-04-04 Outpatient Young_J MMG MMG [id number] [place] 11:52:00 11:52:00 0719 [facility] 2020-03-08 2020-03-08 Outpatient Young_J MMG MMG [id number] [place] 03:56:00 03:56:00 0624 Medical [facility] 2020-03-08 2020-03-08 Outpatient Young_J MMG MMG [id number] [place] 03:56:00 03:56:00 0625 Medical [facility] 2020-03-08 2020-03-08 Outpatient Young_J MMG MMG [id number] [place] 03:56:00 03:56:00 0628 Medical [facility] 2020-03-08 2020-03-08 Outpatient Young_J MMG MMG [id number] [place] 03:56:00 03:56:00 0629 Medical Group 2020-03-08 2020-03-08 Outpatient Young_J MMG MMG [id number] [place] 03:56:00 03:56:00 0705 Medical Group 2020-03-08 2020-03-08 Outpatient Young_J MMG MMG [id number] [place] 03:56:00 03:56:00 0706 Medical Group 2020-03-08 2020-03-08 Outpatient Young_J MMG MMG [id number] [place] 03:56:00 03:56:00 0708 [facility] 2020-03-08 2020-03-08 Outpatient Young_J [facility] [id number] [place] 03:56:00 03:56:00 0712 [facility] 2020-03-08 2020-03-08 [facility] [id number] [place] 03:56:00 03:56:00 0715 [facility] 2020-03-08 2020-03-08 [facility] [id number] [place] 03:56:00 03:56:00 0622 [facility] 2020-03-08 2020-03-08 Brad [facility] [place] - [id number] M [place] 00:00:00 00:00:00 Aaron DO: Discovery ramirez [address] [address] , Ph. [phone] 2020-03-05 2020-03-05 Outpatient Young_J [facility] [id number] [place] 02:43:00 02:43:00 0619 [facility] 2020-03-01 2020-03-01 Outpatient Young_J [facility] [id number] [place] 09:57:00 09:57:00 0615 [facility] 2019-08-31 2019-08-31 Emergency E MHSE [facility]SE 7501 14:54:00 14:54:00 [facility] 2017-04-25 2017-04-25 Emergency [facility] [id number] [place] 15:51:21 15:51:21 Health 2017-04-25 2017-04-25 Emergency [facility] [id number] [place] 15:33:29 15:33:29 Health 2017-04-25 2017-04-25 Inpatient [facility] [id number] [place] 15:07:47 15:07:47 Health Results Test Description Test Time Test Comments Results Result Comments Source SURGICAL SPECIMENS 2018-07-28 09:58:00 RUN DATE: 07/28/18 [facility] *LIVE* PAGE 1 RUN TIME: 957 Specimen Inquiry RUN USER: INTERFACE PATIENT: JIGNESH SILVA LOC: [place] U #: [id number] AGE/SX: 48/F ROOM: [facility] RE07/10/18REG DR: Chuckie Leija MD : 70 BED: 3 DIS: 07/26/18 STATUS: DIS IN TLOC: SPEC #: [id number] RECD: 07/25/18 STATUS: KRIS REQ #: [id number] GREG: 07/25/18 [facility] DR: Chuckie Leija MD ENTERED: 07/27/18 SP TYPE: SURG SPEC OTHR DR: No Primary or Family Physician Self Referred Ania Maynard MD,Kayla Davies,Marlon Collins,Ike Zuniga,Darrel Solano,Nnamdi Jaimes,Waqar Rod,Tracie Barnett MD, MDORDERED: LEVEL 4 CODES: [id number] - RECTUM, NOS COPIES TO: No Primary or Family Physician Self Referred Ania Maynard MD [address] [facility] [address] [place] [address] Kayla Rene MD [address] [facility] [address] [place] [address] Marlon Davies MD [address] [facility] [address] [place] [address] Ike Collins MD [address] [place] [address] [place] [address] [facility] [address] [place] [address] [email or web address] CONTINUED ON NEXT PAGE RUN DATE: 07/28/18 [facility] *LIVE* PAGE 2 RUN TIME: 58 Specimen Inquiry RUN USER: INTERFACE SPEC #: [id number] PATIENT: JIGNESH SILVA #[id number] (Continued)--------- --- COPIES TO: (Continued) Nnamdi Solano MD [address] [place] [id number] Chuckie Leija MD [address] [facility] [place] [address] Waqar Jaimes MD [address] [facility] [address] [place] [address] Timur Rod MD [address] [place] [address] Tracie Valencia MD [address] [place] [address] PROCEDURES: LEVEL 4 (Incomplete) TISSUES: 1. RECTUM, [...] CONTINUED ON NEXT PAGE RUN DATE: 07/28/18 [facility] *LIVE* PAGE 3 RUN TIME: 957 Specimen Inquiry RUN USER: INTERFACE SPEC #: [id number] PATIENT: RICARDOJIGNESH #[id number] (Continued)--------- --- POST-OP DIAGNOSIS Proctitis PRE-OP DIAGNOSIS Dysphagia, abnormal CT imaging Signed SIGNATURE ON FILE Jessica Saleem MD 07/28/18 0958 END OF REPORT SURGICAL SPECIMENS 2018-07-25 08:01:00 RUN DATE: 07/25/18 [facility] *LIVE* PAGE 1 RUN TIME: 800 Specimen Inquiry RUN USER: INTERFACE PATIENT: JIGNESH SILVA LOC: [place] U #: [id number] AGE/SX: 48/F ROOM: [facility] RE07/10/18REG DR: Chuckie Leija MD : 70 BED: 1 DIS: STATUS: ADM IN TLOC: SPEC #: [id number] RECD: 07/15/18 STATUS: KRIS REQ #: [id number] GREG: 07/15/[address]: Chuckie Leija MD ENTERED: 07/25/18 SP TYPE: SURG SPEC OTHR DR: No Primary or Family Physician Self Referred Ania Maynard MD, Kinjal MD Ghosh, Subrata MD Lakhani, Asif MD Loya, Altaf MD [place],Nnamdi Jaimes,Waqar Rod,Tracie Barnett MD, MDORDERED: GM LEVEL 4 CODES: [id number] - VERTEBRA, NOS COPIES TO: No Primary or Family Physician Self Referred Ania Maynard MD [address] [facility] [address] [place] [address] Kayla Rene MD [address] [place] [address] Marlon Davies MD [address] [facility] [address] [place] [address] Ike Collins MD [address] [place] [address] [place] [address] [facility] [address] [place] [address] [email or web address] CONTINUED ON NEXT PAGE RUN DATE: 07/25/18 [facility] *LIVE* PAGE 2 RUN TIME: 800 Specimen Inquiry RUN USER: INTERFACE SPEC #: [id number] PATIENT: JIGNESH SILVA #[id number] (Continued)--------- --- COPIES TO: (Continued) Nnamdi Solano MD [address] [place] [address] Chuckie Leija MD [address] [facility] [place] [address] Waqar Jaimes MD [address] [facility] [address] [place] [address] Timur Rod MD [address] [place] [address] [place] [address] Tracie Valencia MD [address] [place] [address] PROCEDURES: GM LEVEL 4 (Incomplete) TISSUES: 1. [...] CONTINUED ON NEXT PAGE RUN DATE: 07/25/18 [facility] *LIVE* PAGE 3 RUN TIME: 800 Specimen Inquiry RUN USER: INTERFACE SPEC #: [id number] PATIENT: JIGNESH SILVA #[id number] (Continued)--------- --- POST-OP DIAGNOSIS None given PRE-OP DIAGNOSIS Depression, alcoholism Cirrhosis, neuropathy, multiple compression fractures REVIEWED BY: Signed SIGNATURE ON FILE Jessica Saleem MD 07/25/18 0801 END OF REPORT
[2022-01-05] MEDS ORDERED: HYDROCODONE/APAP 7.5/325 MG TAB ONE (17:18)
--- NOTE | 2022-01-05 17:41 | RAD REPORT ---
EXAM DESCRIPTION: RAD - Hip Left 2 View - 01/05/2022 5:31 pm CLINICAL HISTORY: Left hip pain status post injury FINDINGS: No fracture or dislocation is seen. The bones are osteoporotic. If the patient continues have symptoms to suggest an occult fracture then MRI would be recommended
--- NOTE | 2022-01-05 17:43 | RAD REPORT ---
EXAM DESCRIPTION: RAD - Lumbar Spine 3 Views - 01/05/2022 5:31 pm CLINICAL HISTORY: Back pain FINDINGS: Osteoporosis. No dislocation Compression fractures involve the distal thoracic and several lumbar vertebra. They vary from a mild to moderate in severity. Of the thoracic compression fractures are all chronic. I suspect most if not all the lumbar fractures are chronic. If patient continues to have clinical sym ptoms to suggest an acute fracture then MRI would be recommended
--- NOTE | 2022-01-05 18:35 | ER ---
Nurse's Notes [facility] Name: Snehal Viramontes Age: 52 yrs Sex: Female : 1970 Arrival Date: 01/05/2022 Time: 16:50 Bed 28 Private MD: Evelia Huber Diagnosis: Wedge compression fracture of unspecified lumbar vertebra;Wedge compression fracture of unspecified thoracic vertebra;Fall (on) (from) other stairs and steps;Pain in left hip Presentation: 01/05 16:57 Chief complaint: Patient states: tripped while going up the stairs. C/O left barfield, hip ld1 and rib pain. Denies LOC. Coronavirus screen: At this time, the client does not indicate any symptoms associated with coronavirus-19. Ebola Screen: No symptoms or risks identified at this time. Initial Sepsis Screen: Does the patient meet any 2 criteria? No. Patient's initial sepsis screen is negative. Does the patient have a suspected source of infection? No. Patient's initial sepsis screen is negative. Risk Assessment: Do you want to hurt yourself or someone else? Patient reports no desire to harm self or others. Onset of symptoms was January 05, 2022. 16:57 Method Of Arrival: Wheelchair ld1 16:57 Acuity: EH 4 ld1 Triage Assessment: 16:57 General: Appears in no apparent distress. comfortable, Behavior is calm, cooperative, ld1 appropriate for age. Pain: Denies pain. EENT: No signs and/or symptoms were reported regarding the EENT system. Neuro: Level of Consciousness is awake, alert, obeys commands, Oriented to person, place, time, situation. Cardiovascular: Capillary refill < 3 seconds Patient's skin is warm and dry. Respiratory: Airway is patent Respiratory effort is even, unlabored, Respiratory pattern is regular, symmetrical. GI: Abdomen is flat, non-distended. : No signs and/or symptoms were reported regarding the genitourinary system. Derm: No signs and/or symptoms reported regarding the dermatologic system. Musculoskeletal: No signs and/or symptoms reported regarding the musculoskeletal system. 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 - Social history:: Smoking status: Patient denies any tobacco usage or history of. Patient uses alcohol, occasionally. Screenin:17 Abuse screen: Denies threats or abuse. Nutritional screening: No deficits noted. jd3 Tuberculosis screening: Tuberculosis screening: No symptoms or risk factors identified. Fall Risk Ambulatory Aid- None/Bed Rest/Nurse Assist (0 pts). Gait- Normal/Bed Rest/Wheelchair (0 pts) Mental Status- Oriented to own ability (0 pts). Total Burgess Fall Scale indicates No Risk (0-24 pts). Assessment: 17:18 General: Appears in no apparent distress. comfortable, Behavior is calm, cooperative, jd3 appropriate for age. Pain: Complains of pain in low back area and left flank Quality of pain is described as sharp, shooting, tender. Neuro: Level of Consciousness is awake, alert, obeys commands, Oriented to person, place, time, situation. Cardiovascular: Capillary refill < 3 seconds Patient's skin is warm and dry. Respiratory: Airway is patent Respiratory effort is even, unlabored, Respiratory pattern is regular, symmetrical, Denies cough, shortness of breath. GI: No signs and/or symptoms were reported involving the gastrointestinal system. : No signs and/or symptoms were reported regarding the genitourinary system. EENT: No signs and/or symptoms were reported regarding the EENT system. Derm: Skin is intact, Skin is dry, Skin is normal, Skin temperature is warm. Musculoskeletal: Circulation, motion, and sensation intact. Range of motion: intact in all extremities. 18:41 Reassessment: Patient appears in no apparent distress at this time. Patient and/or jd3 family updated on plan of care and expected duration. Pain level reassessed. Patient is alert, oriented x 3, equal unlabored respirations, skin warm/dry/pink. Patient states feeling better. Vital Signs: 16:57 BP 136 / 100; Pulse 108; Resp 19; Temp 98.7(TE); Pulse Ox 99% on R/A; Weight 50.35 kg; ld1 Height 5 ft. 1 in. (154.94 cm); Pain 0/10; 18:41 BP 145 / 111; Pulse 88; Resp 19 S; Pulse Ox 97% on R/A; jd3 16:57 Body Mass Index 20.97 (50.35 kg, 154.94 cm) ld1 ED Course: 16:50 Patient arrived in ED. as 16:50 Evelia Huber is Private Physician. as 16:57 Arm band placed on right wrist. ld1 16:59 Triage completed. ld1 16:59 Olegario Coello FNP-C [facility] la1 16:59 Juan M Stover MD is Attending Physician. la1 17:12 Surya Mcclure, RN is Primary Nurse. jd3 17:17 Patient has correct armband on for positive identification. Bed in low position. Call jd3 light in reach. Side rails up X 1. Adult w/ patient. Pulse ox on. NIBP on. 17:33 Hip Left 2 View XRAY In Process Unspecified. EDMS 17:33 Lumbar Spine (3 Views) XRAY In Process Unspecified. EDMS 18:41 No provider procedures requiring assistance completed. Patient did not have IV access jd3 during this emergency room visit. Administered Medications: 17:17 Drug: [place] (HYDROcodone-acetaminophen) (7.5 mg-325 mg) 1 tabs Route: PO; jd3 17:46 Follow up: Response: No adverse reaction; RASS: Alert and Calm (0) jd3 Outcome: 18:32 Discharge ordered by . la1 18:41 Discharged to home ambulatory, with family, with cane jd3 18:41 Condition: stable 18:41 Discharge instructions given to patient, Instructed on discharge instructions, follow up and referral plans. medication usage, Demonstrated understanding of instructions, follow-up care, medications, Prescriptions given X 2. 18:42 Patient left the ED. jd3 Signatures: Dispatcher [employer] EDMS Prabha Cox as Olegario Coello FNP-C MASTIC WORKER-Cla1 Surya Mcclure, RN RN jd3 Angelica Carrasquillo RN RN ld1
--- NOTE | 2022-01-05 18:35 | EDPHYS ---
Physician Documentation [facility] Name: Snehal Viramontes Age: 52 yrs Sex: Female : 1970 Arrival Date: 01/05/2022 Time: 16:50 Bed 28 Private MD: Evelia Huber ED Physician Juan M Stover HPI: 01/05 17:36 This 52 yrs old Female presents to ER via Wheelchair with complaints of Fall Injury. la1 17:36 Details of fall: The patient fell from an upright position, walking up stairs. Onset: la1 The symptoms/episode began/occurred just prior to arrival. Associated injuries: The patient sustained injury to the low back, contusion, pain, left hip, painful injury. Severity of symptoms: At their worst the symptoms were moderate. The patient has not experienced similar symptoms in the past. Pt tripped up stairs carrying an object, denies LOC. 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 - Social history:: Smoking status: Patient denies any tobacco usage or history of. Patient uses alcohol, occasionally. ROS: 17:37 Constitutional: Negative for fever, chills, and weight loss, Eyes: Negative for injury, la1 pain, redness, and discharge, ENT: Negative for injury, pain, and discharge, Neck: Negative for injury, pain, and swelling, Cardiovascular: Negative for chest pain, palpitations, and edema, Respiratory: Negative for shortness of breath, cough, wheezing, and pleuritic chest pain, Abdomen/GI: Negative for abdominal pain, nausea, vomiting, diarrhea, and constipation. 17:37 Skin: Negative for injury, rash, and discoloration. 17:37 Back: Positive for pain at rest, pain with movement. 17:37 MS/extremity: Positive for pain, of the left hip. Exam: 17:37 Constitutional: This is a well developed, well nourished patient who is awake, alert, la1 and in no acute distress. Head/Face: Normocephalic, atraumatic. ENT: Mucous membranes moist. Neck: Supple, full range of motion without nuchal rigidity, or vertebral point tenderness. No Meningismus. Chest/axilla: Normal chest wall appearance and motion. Nontender with no deformity. No lesions are appreciated. Cardiovascular: Regular rate and rhythm with a normal S1 and S2. Respiratory: No increased work of breathing, no retractions or nasal flaring. Abdomen/GI: Soft, non-tender, with normal bowel sounds. Back: Pain to palpation lkumbar spine Skin: Warm, dry with normal turgor. Normal color with no rashes, no lesions, and no evidence of cellulitis. MS/ Extremity: pain with ROM left hip Vital Signs: 16:57 BP 136 / 100; Pulse 108; Resp 19; Temp 98.7(TE); Pulse Ox 99% on R/A; Weight 50.35 kg; ld1 Height 5 ft. 1 in. (154.94 cm); Pain 0/10; 18:41 BP 145 / 111; Pulse 88; Resp 19 S; Pulse Ox 97% on R/A; jd3 16:57 Body Mass Index 20.97 (50.35 kg, 154.94 cm) ld1 MDM: 17:01 Patient medically screened. la1 18:30 Data reviewed: vital signs, nurses notes, radiologic studies, plain films, and as a la1 result, I will discharge patient. Data interpreted: Pulse oximetry: on room air is 99 %. Interpretation: normal. Counseling: I had a detailed discussion with the patient and/or guardian regarding: the historical points, exam findings, and any diagnostic results supporting the discharge/admit diagnosis, radiology results, the need for outpatient follow up, a family practitioner, a orthopedic surgeon, to return to the emergency department if symptoms worsen or persist or if there are any questions or concerns that arise at home. 01/05 17:07 Order name: Hip Left 2 View XRAY; Complete Time: 17:55 la1 01/05 17:07 Order name: Lumbar Spine (3 Views) XRAY; Complete Time: 17:55 la1 Administered Medications: 17:17 Drug: [place] (HYDROcodone-acetaminophen) (7.5 mg-325 mg) 1 tabs Route: PO; jd3 17:46 Follow up: Response: No adverse reaction; RASS: Alert and Calm (0) jd3 Disposition Summary: 01/05/22 18:32 Discharge Ordered Location: Home la1 Problem: new la1 Symptoms: have improved la1 Condition: Stable la1 Diagnosis - Wedge compression fracture of unspecified lumbar vertebra la1 - Wedge compression fracture of unspecified thoracic vertebra la1 - Fall (on) (from) other stairs and steps la1 - Pain in left hip la1 Followup: la1 - With: Private Physician - When: 2 - 3 days - Reason: Recheck today's complaints, Re-evaluation by your physician Discharge Instructions: - Discharge Summary Sheet la1 - Fall Prevention in the Home, Adult la1 - Musculoskeletal Pain la1 - Osteoporosis la1 - Lumbar Spine Fracture la1 - Hip Pain la1 - Eating Plan for Osteoporosis la1 Forms: - Medication Reconciliation Form la1 - Thank You Letter la1 - Prescription Opioid Use la1 Prescriptions: - Zanaflex 4 mg Oral Tablet - take 1 tablet by ORAL route every 8 hours As needed; 20 tablet; Refills: 0, la1 Product Selection Permitted - Tylenol-Codeine #3 300 mg-30 mg Oral - take 1 tablet by ORAL route 3-4 times daily; 20 tablet; Refills: 0, Product la1 Selection Permitted Signatures: Dispatcher [employer] Olegario Kearney, MOLDED PARTS INSPECTOR-C MOLDED PARTS INSPECTOR-Cla1 Surya Mcclure, RN RN jd3 Angelica Carrasquillo RN RN ld1
[2022-01-05 19:04] VITALS: TEMP 98.7
[2022-01-05 19:07] VITALS: BP 145/111; O2SAT 97
== END 2022-01-05 18:42 | disposition home or self-care (01) ==
LOC: ER 16:49
DX: S32.000A Wedge compression fracture of unspecified lumbar vertebra, initial encounter for closed fracture (principal); S22.000A Wedge compression fracture of unspecified thoracic vertebra, initial encounter for closed fracture; M25.552 Pain in left hip; W10.9XXA Fall (on) (from) unspecified stairs and steps, initial encounter; Y93.9 Activity, unspecified; Y92.018 Other place in single-family (private) house as the place of occurrence of the external cause
CPT/HCPCS: 72100; 99284

== ENCOUNTER 2022-04-28 08:43 | Day surgery (SDC) | payer OTHER ==
[2022-04-25 15:41] LABS: Absolute Lymphocytes (CBC) 1.5 K/uL (0.7-4.9); Lymphocytes % 23.9 % (15.3-44.8); MCV 86.8 fL (80-100); MPV 6.6 fL (7.6-11.3); RBC Red Blood Cell Count 4.27 M/uL (3.86-4.86)
[2022-04-25 16:08] LABS: SARS-CoV-2 Antigen Rapid Res Negative (Negative)
--- NOTE | 2022-04-26 07:55 | EKG ---
Test Date: 2022-04-25 Test Time: 15:22:31 Operating Systems Specialist: TIMMY MEASUREMENT RESULTS: Intervals: Rate: 77 [place]: 136 QRSD: 78 QT: 382 QTc: 432 [place]: P: 9 [place]: 136 QRS: 44 T: 55 INTERPRETIVE STATEMENTS: Normal sinus rhythm Low voltage QRS Borderline ECG Compared to ECG 06/03/2020 14:35:34 Low QRS voltage now present Prolonged QT interval no longer present Electronically Signed On 04-26-22 07:52:36 CDT by Sean Sanders
[2022-04-28] MEDS ORDERED: Ringers Lactate 1,000 ML IV ONE ×2 (09:05→13:02)
[2022-04-28] MEDS ORDERED: CEFAZOLIN SODIUM 1 GM/VIAL ONE (09:05)
[2022-04-28] MEDS ORDERED: FENTANYL CITR 100 MCG/2 ML ONE (09:40)
[2022-04-28] MEDS ORDERED: ROCURONIUM 50 MG/5 ML VIAL IV ONE (09:40)
[2022-04-28] MEDS ORDERED: MIDAZOLAM HCL 2 MG/2 ML INJ ONE (09:40)
[2022-04-28] MEDS ORDERED: dexAMETHasone 10 MG/ML VIAL ONE ×2 (09:40→11:08)
[2022-04-28] MEDS ORDERED: LIDOCAINE 1% MPF 5 ML VIAL ONE (09:40)
[2022-04-28] MEDS ORDERED: propofoL 200 MG/20 ML VIAL IV ONE (09:40)
[2022-04-28] MEDS ORDERED: ONDANSETRON 4 MG/2 ML VIAL ONE (09:41)
[2022-04-28] MEDS ORDERED: CELECOXIB 100 MG CAPSULE ONE (10:11)
[2022-04-28] MEDS ORDERED: ACETAMINOPHEN 500 MG TAB ONE (10:11)
[2022-04-28] MEDS: BUPIVACAINE 0.25% PF 10 ML VIAL ONE ×2 (10:33→10:51)
[2022-04-28] MEDS ORDERED: NS 0.9% VIAL 20 ML ONE (11:08)
[2022-04-28] MEDS ORDERED: BUPIVACAINE 0.25% PF 10 ML VIAL ONE (11:09)
--- NOTE | 2022-04-28 11:32 | P.OP ---
Preoperative diagnosis: Umbilical Hernia Postoperative diagnosis: Umbilical Hernia Primary procedure: Laparoscopic Umbilical Hernia Repair with mesh Anesthesia: GETA + local Estimated blood loss: <5cc Specimen: none Findings: ~1.5cm umbilical hernia, small pinsize hernia of midline pelvis Complications: None Implants: 11.4 cm ventralite mesh, sorbafix Transferred to: Recovery Room Condition: Good
[2022-04-28] MEDS ORDERED: NEOSTIGMINE 1 MG/ML -10 ML VIAL ONE (12:01)
[2022-04-28] MEDS ORDERED: GLYCOPYRROLATE 0.2 MG/ML SYR ONE (12:01)
[2022-04-28] MEDS: HYDROMORPHONE HCL 1 MG/ML INJ ONE ×2 (12:34→12:38)
[2022-04-28] MEDS ORDERED: HYDROMORPHONE HCL 1 MG/ML INJ ONE (12:40)
[2022-04-28 12:56] VITALS: O2SAT 98
[2022-04-28 15:20] VITALS: BP 122/92; TEMP 97.1
--- NOTE | 2022-04-28 22:42 | OP ---
Date of Procedure: 04/28/2022 Surgeon: Hayder Quesada MD, Preoperative Diagnosis: Umbilical hernia. Postoperative Diagnosis: Umbilical hernia. Procedure Performed: 1.Laparoscopic umbilical hernia repair with mesh. 2.Laparoscopic primary repair of midline ventral suprapubic hernia. Specimen: None. Estimated Blood Loss: Less than 5 mL. Anesthesia: General endotracheal plus local. Findings: 1.Approximately 1.5 cm umbilical hernia with incarcerated adipose tissue from omentum. 2.Small pin size hernia of midline pelvis. The previous scar containing only a small port ion of omentum. Complications: None. Implants: 11.4 cm Bard Ventralight mesh and SorbaFix absorbable fixation tacks. Disposition And Condition: The patient was transferred to recovery room in good condition. Procedure In Detail: After informed was obtained, the patient was brought to the operating room, pre pped and draped in the usual sterile fashion after adequate anesthesia was achieved. An area of the left upper quadrant was anesthetized with 0.25% Marcaine, sharply incised. A 5 mm trocar was placed under direct vision without complication. Insufflation was obtained to 15 mmHg at this time. The ab domen was inspected. There was no injury to vital structures in the abdomen. Additional trocar was placed in the left lower quadrant. This similarly anesthetized, sharply incised, and a 12 mm trocar was placed under direct visualization without any evidence of complication. At this point, a grasper was used to grasp the omentum and reduce it manually from the umbilical hernia defect. At this poin t, I palpated the hernia defect, found to be approximately 1.5 cm, round in size. I then inspected a portion of the omentum and the pelvis extending up through the previous incision/Brandie ty pe incision. There was a small pinhole, which had trapped in a trapped part of this omentum. This w as reduced manually using the LigaSure device and hemostasis was achieved as there was a small amount of bleeding from the omentum due to a small rip in it. This was easily controlled with the LigaSure device. At this point, I brought in the V-Loc suture and 0 V-Loc suture and closed the suprapubic d efect in a running-type V-Loc suture with good apposition and approximation of the tissues. This def ect was less than tenth of a centimeter in size and had good apposition of the tissues. At this poin t, I turned my attention to the umbilical hernia area. After appropriately size of the mesh, 11.4 cm was decided. I then used an additional 0 V-Loc suture to close and reapproximate. Imbricated the h ernia sac at the umbilicus to close the defect with good apposition of the tissues. At this point, I then brought in the 11.4 cm round Ventralight mesh and deployed it in the central position in the pe riumbilical space and then secured to the anterior abdominal wall using a double crown of SorbaFix ab sorbable fixation sutures. I then removed the balloon deployment system, found to be intact on the b ack table and secured it with remaining tacks. Approximately 45 tacks were used to secure to the ant erior bowel, good apposition and a double crown type orientation. The patient was positioned slightl y away. I then closed the 12 mm trocar site using a [place]-Humza suture passer with 0 Vicryl for fascia and good approximation of tissues. Remaining trocars were removed after completely de-sufflat ing the abdomen without evidence of complication. All skin incisions were copiously irrigated and cl osed with a 4-0 Monocryl in running fashion. Dermabond was placed over the top. The patient tolerat ed the procedure well without any evidence of complications and transferred to PACU in good condition . All counts were correct at the end of the case. MILLICENT/VIMAL Voice ID: [id number] Report ID: [id number]
== END 2022-04-28 13:55 | disposition home or self-care (01) ==
LOC: OR 08:43
PROVIDERS: ATTEND Surgery
PROC: 0WUF4JZ Supplement Abdominal Wall with Synthetic Substitute, Percutaneous Endoscopic Approach (ICD-10-PCS; principal; 2022-04-28 10:45)
DX: K42.9 Umbilical hernia without obstruction or gangrene (principal); F41.8 Other specified anxiety disorders; M19.90 Unspecified osteoarthritis, unspecified site; F31.9 Bipolar disorder, unspecified; Z20.822 Contact with and (suspected) exposure to COVID-19
CPT/HCPCS: 93005; 85025; 80048; 36415; 87811; 49652; J2704; J2710; J2250; J3010; J1100 ×2; J1170; J7120 ×2; J2405; J0690; C1781

== ENCOUNTER 2022-05-07 19:02 | Emergency (ER) | payer OTHER ==
--- OUTSIDE RECORDS SUMMARY | 2022-05-07 19:05 | XMS REPORT | Continuity of Care Document ---
:1970 Author Organization [facility] t Address [facility] [place] [address] Care Team Providers Name Role Phone MARTIN HOWELL Primary Care Physician Unavailable Evelia Huber Attending Clinician Unavailable GLORIA RAMÍREZ Attending Clinician Unavailable KAYLIE VALDEZ Attending Clinician Unavailable MARTIN HOWELL Attending Clinician Unavailable Saige Attending Clinician Unavailable JORDI SHER Attending Clinician Unavailable SHELBI SWENSON Attending Clinician Unavailable MARTIN HOWELL Admitting Clinician Unavailable Saige Admitting Clinician Unavailable Payers Payer Name Policy Type Policy Number Effective Date Expiration Date [place] [facility] [id number] 2020 00:00:00 MEDICARE PART A \\T\\ [id number] 2020 B 00:00:00 [facility] [id number] 2019 [employer] [place] 00:00:00 [place]MEDICAID HMO[place] [id number] Problems This patient has no known problems. Allergies, Adverse Reactions, Alerts Allergy Allergy Status Severity Reaction(s) Onset Inactive Treating Comm ents Source Name Type Date Date Clinician MONOSODI DRUG Active Swelling Univer s [facility] INGREDI 3-04 ity of GL[facility]AT 00:00: [place] [facility] No Known DA Active U [facility] Allergie 0-23 Clear s 00:00: Liu 00 [facility] No Known DA Active U 2017-0 [facility] Allergie 2-18 [place] [facility] 00:00: d 00 [facility] No Known DA Active U 2012-0 [facility] All[facility]ie 6-27 [place] [facility] 00:[facility]: d 00 [facility] NO KNOWN Drug Active Univers ALLERGIE Class ity of S [facility] Social History Smoking Status Start Date Stop Date Source Never Smoker [facility] Medications Ordered Filled Start Stop Current Ordering Indication Dosage Frequency Signature Comments Components Source Medication Medication Date Date Medication? Clinician (SIG) Name Name linzess 145 linzess 145 No linzess [place] [facility] caps mcg caps 145 mcg da caps [facility] methocarbam methocarbam No methocarba [place] 500 mg ol 500 mg mol 500 mg da tabs tabs tabs Medical [facility] sertraline sertraline No sertraline [place] hcl 50 mg hcl 50 mg hcl 50 mg da tabs tabs tabs [facility] gabapentin gabapentin No gabapentin [place] 400 mg caps 400 mg caps 400 mg da caps Medical [facility] hydroxyzine hydroxyzine No hydroxyzin [place] hcl 50 mg hcl 50 mg e hcl 50 d a tabs tabs mg tabs Medical Group Vital Signs Vital Name Observation Time Observation Value Comments Source BP Diastolic 2020-03-08 00:00:00 70 mm[Hg] [facility] Height 2020-03-08 00:00:00 63.5 [in_i] [facility] BMI (Body Mass 2020-03-08 00:00:00 18.9 kg/m2 [facility] BP Systolic 2020-03-08 00:00:00 110 mm[Hg] [facility] Body Weight 2020-03-08 00:00:00 108.2 [lb_av] [facility] Procedures Procedure Date / Time Performed Performing Clinician Johana valdes CT, abdomen + pelvis, 2020-03-08 00:00:00 [facility] w/wo contrast Group CT, abdomen + pelvis, 2020-03-08 00:00:00 [facility] w/o contrast Group Encounters Start End Encounter Admission Attending Care Care Encounter Source Date/Time Date/Time Type Type Clinicians Facility Department ID 2022-04-21 Outpatient Huber, STLMLC STLMLC [id number] Common 17:20:01 E[facility] 2022-04-07 Outpatient Huber, STLMLC STLMLC [id number] Common 09:04:01 Evel[facility] 2017-04-26 Inpatient [facility] [id number] H arris 11:55:36 Health 2022-05-03 2022-05-03 ambulatory STLMLC STLMLC [id number] Common 00:00:00 00:00:00 [facility] 2022-04-26 2022-04-26 ambulatory STLMLC STLMLC [id number] Common 00:00:00 00:00:00 [facility] 2022-04-17 2022-04-17 ambulatory STLMLC STLMLC [id number] Common 00:00:00 00:00:00 [facility] 2022-04-10 2022-04-10 ambulatory STLMLC STLMLC [id number] Common 00:00:00 00:00:00 [facility] 2022-04-07 2022-04-07 ambulatory STLMLC STLMLC [id number] Common 00:00:00 00:00:00 [facility] 2021-10-25 2021-10-25 Outpatient Teetee DESIREE [facility] [id number] Univers 08:30:00 08:30:00 GLORIA [id number] [facility] 2021-08-25 2021-08-25 Outpatient KAYLIE VALDEZ [facility] [id number] [place] 00:00:00 00:00:[address] 2021-08-16 2021-08-16 Outpatient KAYLIE VALDEZ [facility] [id number] [place] 00:00:00 00:00:[address] 2021-08-10 2021-08-10 [facility] [id number] Univers 14:30:00 14:30:00 GLORIA [id number] [facility] 2021-08-10 2021-08-10 [facility] [id number] Univers 14:30:00 14:30:00 MICHEALONG [facility] 2021-05-12 2021-05-12 Outpatient KAYLIE VALDEZ [facility] [id number] [place] 00:00:00 00:00:00 952 [facility] i 2021-04-26 2021-04-26 Outpatient SIFKAYLIE Ellis [facility] [id number] [place] 00:00:00 00:00:00 557 [facility] 2021-04-26 2021-04-26 Outpatient SIFFKAYLIE [facility] [id number] [place] 00:00:00 00:00:00 551 [facility] 2020-12-21 2020-12-21 Outpatient R DANTE, [facility] [id number] Univers 07:04: 23:59:00 MARTIN itarmando o [facility] 2020-12-21 2020-12-21 Outpatient R DANTE, [facility] [id number] Univers 13:15:00 13:15:00 MARTIN Trejo406 ginger o [facility] 2020-12-21 2020-12-21 Outpatient Young_J MMG MMG [id number] [place] 11:05:00 11:05:00 0[facility] 2020-12-17 2020-12-17 Outpatient Teetee SHER [facility] [id number] Univers 13:30:00 13:30:00 JORDI [id number] [facility] 2020-12-15 2020-12-15 Outpatient Teetee SWENSON [facility] [id number] Univers 10:00:00 10:00:00 SHELBI [facility] 2020-12-03 2020-12-03 Outpatient Teetee SHER [facility] [id number] Univers 15:00:00 15:00:00 JORDI [id number] [facility] 2020-12-03 2020-12-03 Outpatient Teetee SHER [facility] [id number] Univers 15:00:00 15:00:00 JORDI [facility] 2020-11-18 2020-11-18 Outpatient R DANTE, [facility] [id number] Univers 14:00:00 14:00:00 MARTIN valladares f [facility] 2020-08-04 2020-08-04 Outpatient Young_J MMG MMG [id number] [place] 02:25:00 02:25:00 1118 [facility] 2020-04-04 2020-04-04 Outpatient Young_J MMG MMG [id number] [place] 11:52:00 11:52:00 0719 [facility] 2020-03-08 2020-03-08 Outpatient Young_J MMG MMG [id number] [place] 03:56:00 03:56:00 0624 [facility] 2020-03-08 2020-03-08 Outpatient Young_J MMG MMG [id number] [place] 03:56:00 03:56:00 0625 [facility] 2020-03-08 2020-03-08 Outpatient Young_J MMG MMG [id number] [place] 03:56:00 03:56:00 0628 [facility] 2020-03-08 2020-03-08 Outpatient Young_J MMG MMG [id number] [place] 03:56:00 03:56:00 0629 [facility] 2020-03-08 2020-03-08 Outpatient Young_J MMG MMG [id number] [place] 03:56:00 03:56:00 0705 [facility] 2020-03-08 2020-03-08 Outpatient Young_J MMG MMG [id number] [place] 03:56:00 03:56:00 0706 [facility] 2020-03-08 2020-03-08 Outpatient Young_J MMG MMG [id number] [place] 03:56:00 03:56:00 0708 [facility] 2020-03-08 2020-03-08 Outpatient Young_J MMG MMG [id number] [place] 03:56:00 03:56:00 0712 [facility] 2020-03-08 2020-03-08 Outpatient Young_J MMG MMG [id number] [place] 03:56:00 03:56:00 0715 [facility] 2020-03-08 2020-03-08 Outpatient Young_J MMG MMG [id number] [place] 03:56:00 03:56:00 0622 [facility] 2020-03-08 2020-03-08 Brad PAPPAS [place] - [id number] M [facility] 00:00:00 00:00:00 DO Aaron: [facility] james medrano [address] [place] [address] Group [facility] - [address], [facility], [place] [address] , Ph. [phone] 2020-03-05 2020-03-05 Outpatient Aaron_Kenzie VALLE [facility] [id number] [place] 02:43:00 02:43:00 0619 [facility] 2020-03-01 2020-03-01 Outpatient Saige VALLE [facility] [id number] [place] 09:57:00 09:57:00 0615 [facility] 2019-08-31 2019-08-31 Emergency E MHSE MHSE [id number] MH 14:54:00 14:54:00 Andria medrano [facility] 2017-04-25 2017-04-25 Emergency [facility] [id number] [place] 15:51:21 15:51:21 Health 2017-04-25 2017-04-25 Emergency [facility] [id number] [place] 15:33:29 15:33:29 Health 2017-04-25 2017-04-25 Inpatient [facility] [id number] [place] 15:07:47 15:07:47 Health Results Test Description Test Time Test Comments Results Result Comments Source SURGICAL SPECIMENS 2018-07-28 09:58:00 RUN DATE: 07/28/18 [facility] *LIVE* PAGE 1 RUN TIME: 957 Specimen Inquiry RUN USER: INTERFACE PATIENT: SNEHAL VIRAMONTES LOC: [place] U #: [id number] AGE/SX: 48/F [place] [facility] [place]07/[place]18REG DR: Chuckie Leija MD : 70 BED: 3 DIS: 07/26/18 STATUS: DIS IN TLOC: SPEC #: [id number] RECD: 07/25/18 STATUS: KRIS RE #: [id number] GREG: 07/25/18 [facility] DR: Chuckie Leija MD ENTERED: 07/27/18 SP TYPE: SURG SPEC OTHR DR: No Primary or Family Physician Self Referred Ania Maynard MD, Kinjal MD Ghosh, Subrata MD Lakhani, Asif MD Loya, Altaf MD Maksoud, Alfred S MD Rungta,Waqar Rod,Tracie Barnett MD, MDORDERED: GM LEVEL 4 CODES: [id number] - RECTUM, NOS COPIES TO: No Primary or Family Physician Self Referred Ania Maynard MD [address] [place] [address] Kayla Rene MD [address] [place] [address] Marlon Davies MD [address] [facility] [address] [place] [address] Ike Collins MD [address] [place] [address] [place] Z[place] [address] [facility] [address] [place] [address] [email or web address] CONTINUED ON NEXT PAGE RUN DATE: 07/28/18 [facility] *LIVE* PAGE 2 RUN TIME: 957 Specimen Inquiry RUN USER: INTERFACE SPEC #: [id number] PATIENT: SNEHAL VIRAMONTES #[id number] (Continued)--------- --- COPIES TO: (Continued) Nnamdi Solano MD [address] [place] [address] Chuckie Leija MD [address] [facility] [place] [address] Waqar Jaimes MD [address] [place] [address] Timur Rod MD [address] [place] [address] Tracie Valencia MD [address] [place] [address] PROCEDURES: LEVEL 4 (Incomplete) TISSUES: 1. RECTUM, [...] CONTINUED ON NEXT PAGE RUN DATE: 07/28/18 [facility] *LIVE* PAGE 3 RUN TIME: 957 Specimen Inquiry RUN USER: INTERFACE SPEC #: [id number] PATIENT: SNEHLA VIRAMONTES #[id number] (Continued)--------- --- POST-OP DIAGNOSIS Proctitis PRE-OP DIAGNOSIS Dysphagia, abnormal CT imaging Signed SIGNATURE ON FILE JabarijeanetteJessica Hunter MD 07/28/18 0958 END OF REPORT SURGICAL SPECIMENS 2018-07-25 08:01:00 RUN DATE: 07/25/18 [facility] *LIVE* PAGE 1 RUN TIME: 800 Specimen Inquiry RUN USER: INTERFACE PATIENT: SNEHAL VIRAMONTES LOC: [facility] U #: [id number] AGE/SX: 48/F ROOM: [facility] RE07/10/18REG DR: Chuckie Leija MD : 70 BED: 1 DIS: STATUS: ADM IN TLOC: SPEC #: [id number] RECD: 07/15/18 STATUS: KRIS TROY #: [id number] GREG: 07/15/[address]: Chuckie Leija MD ENTERED: 07/25/18 SP TYPE: SURG SPEC OTHR DR: No Primary or Family Physician Self Referred Ania Maynard MD, Kinjal MD Ghosh, Subrata MD Lakhani, Asif MD Loya, Altaf MD Maksoud,Nnamdi Jaimes,Waqar Rod,Timur Valencia,Tracie FRAZIERORDERED: LEVEL 4 CODES: [id number] - VERTEBRA, NOS COPIES TO: No Primary or Family Physician Self Referred Ania Maynard MD [address] [facility] [address] [place] [address] Kayla Rene MD [address] [place] [address] Marlon Davies MD [address] [facility] [address] [place] [address] Ike Collins MD [address] [place] [address] [place] [address] [facility] [address] [place] [address] [email or web address] CONTINUED ON NEXT PAGE RUN DATE: 07/25/18 [facility] *LIVE* PAGE 2 RUN TIME: 800 Specimen Inquiry RUN USER: INTERFACE SPEC #: [id number] PATIENT: SNEHAL VIRAMONTES #[id number] (Continued)--------- --- COPIES TO: (Continued) Nnamdi Solano MD [address] [place] [address] Chuckie Leija MD [address] [facility] [place] [address] Waqar Jaimes MD [address] [facility] [address] [place] [address] Timur Rod MD [address] [place] [address] [place] [address] Tracie Valencia MD [address] [place] [address] PROCEDURES: GM LEVEL 4 (Incomplete) TISSUES: 1. [...] CONTINUED ON NEXT PAGE RUN DATE: 07/25/18 [facility] *LIVE* PAGE 3 RUN TIME: 800 Specimen Inquiry RUN USER: INTERFACE SPEC #: [id number] PATIENT: SNEHAL VIRAMONTES #[id number] (Continued)--------- --- POST-OP DIAGNOSIS None given PRE-OP DIAGNOSIS Depression, alcoholism Cirrhosis, neuropathy, multiple compression fractures REVIEWED BY: Signed SIGNATURE ON FILE Jessica Saleem MD 07/25/18 0801 END OF REPORT
[2022-05-07 19:52] LABS: Urine Blood Negative (Negative); Urine Glucose Negative (Negative); Urine Protein Negative (Negative); Urine Specific Gravity >=1.030 (1.005-1.030); Urine pH 5.5 (5.0-7.0)
[2022-05-07 19:56] LABS: Absolute Lymphocytes (CBC) 1.8 K/uL (0.7-4.9); Hematocrit 36.6 % (36.0-45.0); Lymphocytes % 20.8 % (15.3-44.8); MCV 85.5 fL (80-100); MPV 6.6 fL (7.6-11.3); RBC Red Blood Cell Count 4.28 M/uL (3.86-4.86)
[2022-05-07 20:18] LABS: Albumin 3.8 g/dL (3.4-5.0); Bilirubin Total 0.2 mg/dL (0.2-1.0); Protein, Total 7.3 g/dL (6.4-8.2)
[2022-05-07] MEDS ORDERED: POTASSIUM CL SA 10 MEQ TAB PO ONE (20:58)
--- NOTE | 2022-05-07 21:24 | RAD REPORT ---
EXAM DESCRIPTION: US - Abdomen Exam Limited - 05/07/2022 8:41 pm CLINICAL HISTORY: ABD PAIN COMPARISON: Abdomen Exam Complete dated 04/26/2022 FINDINGS: Multiple small sub centimeter gallstones are present along with a trace amount of sludge. No wall thickening or pericholecystic fluid. No common duct stone or biliary tree dilatation identified. IMPRESSION: Multiple small gallstones are present. No other gallbladder or biliary tree abnormality.
--- NOTE | 2022-05-07 23:02 | RAD REPORT ---
EXAM DESCRIPTION: CT - Abdomen Pelvis W Contrast - 05/07/2022 10:45 pm CLINICAL HISTORY: Abdominal pain COMPARISON: none. TECHNIQUE: Computed axial tomography of the abdomen pelvis was obtained. 100 cc Isovue-300 was admin istered intravenously. Oral contrast was not requested which limits evaluation of bowel and appendix All CT scans are performed using dose optimization technique as appropriate and may include automated exposure control or mA/KV adjustment according to patient size. FINDINGS: Mildly nodular hepatic contour with prominence of left and caudate lobes. Several tiny low -density lesions within the liver are too small to characterize. Prominence of portal vein Several small gallstones. Gallbladder wall is not thickened. The spleen, pancreas, adrenals are unremarkable Mild renal cortical thinning may be related to prior inflammation. No adnexal mass. Postsurgical changes of an umbilical hernia repair. Small amount of ill-defined fluid within the mel cent anterior subcutaneous fat. No abscess. There is no evidence of diverticulitis. Fluid within nondilated large and small bowel. H shaped vertebra can be seen with sickle cell anemia and osteoporosis IMPRESSION: Cholelithiasis without evidence cholecystitis Cirrhosis
--- NOTE | 2022-05-07 23:20 | ER ---
Nurse's Notes [facility] Name: Snehal Viramontes Age: 52 yrs Sex: Female : 1970 Arrival Date: 05/07/2022 Time: 19:05 Bed 26 Private MD: Diagnosis: Other cholelithiasis without obstruction Presentation: 05/07 19:25 Chief complaint: Patient states: I had a hernia repair two weeks ago by Dr. Quesada and 7 I am having increased right upper quadrant pain. Coronavirus screen: At this time, the client does not indicate any symptoms associated with coronavirus-19. Ebola Screen: No symptoms or risks identified at this time. Initial Sepsis Screen: Does the patient meet any 2 criteria? No. Patient's initial sepsis screen is negative. Does the patient have a suspected source of infection? No. Patient's initial sepsis screen is negative. Risk Assessment: Do you want to hurt yourself or someone else? Patient reports no desire to harm self or others. Onset of symptoms was May 07, 2022. 19:25 Method Of Arrival: Ambulatory [facility] 19:25 Acuity: EH 3 bm7 Triage Assessment: 19:28 General: Appears in no apparent distress. uncomfortable, Behavior is calm, cooperative, bm7 appropriate for age. Pain: Complains of pain in right upper quadrant. EENT: No deficits noted. No signs and/or symptoms were reported regarding the EENT system. Neuro: No deficits noted. Cardiovascular: No deficits noted. Respiratory: No deficits noted. GI: Abdomen is round non-distended, Abd is soft X 4 quads Abdomen is tender to palpation in right upper quadrant. : No deficits noted. No signs and/or symptoms were reported regarding the genitourinary system. Derm: No deficits noted. No signs and/or symptoms reported regarding the dermatologic system. Musculoskeletal: No deficits noted. No signs and/or symptoms reported regarding the musculoskeletal system. ROUTE AIDE: 19:28 LMP N/A - Post-menopause bm7 Historical: - Allergies: 21:04 No Known Allergies; hb - PMHx: 19:28 Back pain; DDD; Umbilical hernia; bm7 - PSHx: 19:28 section; bm7 - Immunization history:: Adult Immunizations up to date. - Social history:: Smoking status: Patient denies any tobacco usage or history of. Screenin:19 Abuse screen: Denies threats or abuse. Denies injuries from another. Nutritional hb screening: No deficits noted. Tuberculosis screening: No symptoms or risk factors identified. Fall Risk None identified. Assessment: 19:30 General: Appears in no apparent distress. Behavior is calm, cooperative. hb 19:30 Pain: Pain currently is 4 out of 10 on a pain scale. Neuro: Level of Consciousness is hb awake, alert, obeys commands. Cardiovascular: Patient's skin is warm and dry. Respiratory: Respiratory effort is even, unlabored, Respiratory pattern is regular, symmetrical. GI: Reports lower abdominal pain. : No signs and/or symptoms were reported regarding the genitourinary system. EENT: No signs and/or symptoms were reported regarding the EENT system. Derm: Skin is pink, warm \T\ dry. Musculoskeletal: No signs and/or symptoms reported regarding the musculoskeletal system. 21:00 Reassessment: Patient appears in no apparent distress at this time. Patient and/or hb family updated on plan of care and expected duration. Pain level reassessed. Patient is alert, oriented x 3, equal unlabored respirations, skin warm/dry/pink. 22:02 Reassessment: Patient appears in no apparent distress at this time. Patient and/or hb family updated on plan of care and expected duration. Pain level reassessed. Patient is alert, oriented x 3, equal unlabored respirations, skin warm/dry/pink. 22:41 Reassessment: Patient appears in no apparent distress at this time. Patient and/or hb family updated on plan of care and expected duration. Pain level reassessed. Patient is alert, oriented x 3, equal unlabored respirations, skin warm/dry/pink. Vital Signs: 19:25 BP 135 / 104; Pulse 111; Resp 18; Temp 97.8(TE); Pulse Ox 100% on R/A; Weight 51.71 kg bm7 (R); Height 5 ft. 0 in. (152.40 cm); Pain 8/10; 21:00 BP 124 / 78; Pulse 84; Resp 16; Pulse Ox 99% on R/A; hb 19:25 Body Mass Index 22.26 (51.71 kg, 152.40 cm) bm7 ED Course: 19:05 Patient arrived in ED. bp1 19:21 Anna Collins FNP-C is [facility]. kb 19:21 Pritesh Moreno MD is Attending Physician. kb 19:28 Triage completed. bm7 19:28 Arm band placed on right wrist. bm7 19:44 Mary Ellen Arellano, RN is Primary Nurse. hb 19:51 Initial lab(s) drawn, by me, sent to lab. Inserted saline lock: 20 gauge in right em1 antecubital area, using aseptic technique. Blood collected. 20:19 Patient has correct armband on for positive identification. hb 20:42 Abdomen Limited US In Process Unspecified. EDMS 22:47 Abdomen In Process Unspecified. EDMS 23:27 No provider procedures requiring assistance completed. IV discontinued. ke1 Administered Medications: 21:04 Drug: Potassium Chloride 40 mEq Route: PO; hb 23:27 Follow up: Response: No adverse reaction ke1 Medication: 23:27 VIS not applicable for this client. ke1 Outcome: 23:19 Discharge ordered by MD. kb 23:27 Discharged to home ambulatory. ke1 23:27 Condition: good 23:27 Discharge instructions given to patient. 23:28 Patient left the ED. ke1 Signatures: Dispatcher [employer] EDMS Anna Collins FNP-C [employer]-Kirit Hernández em1 Mary Ellen Arellano, RN RN Tricia [facility] Tricia Bhardwaj, RN RN 7 Kiana Urrutia, RN RN ke1
--- NOTE | 2022-05-07 23:20 | EDPHYS ---
Physician Documentation [facility] Name: Snehal Viramontes Age: 52 yrs Sex: Female : 1970 Arrival Date: 05/07/2022 Time: 19:05 Bed 26 Private MD: ED Physician Pritesh Moreno HPI: 05/07 23:21 This 52 yrs old Female presents to ER via Ambulatory with complaints of Abdominal Pain. kb 23:21 The symptoms are described as constant. Modifying factors: The symptoms are alleviated kb by nothing, the symptoms are aggravated by food, pressure. Severity of pain: At its worst the pain was moderate in the emergency department the pain is unchanged. The patient has not experienced similar symptoms in the past. The patient has not recently seen a physician. 23:21 The patient presents with abdominal pain in the right upper quadrant. Onset: The kb symptoms/episode began/occurred today. The symptoms do not radiate. Associated signs and symptoms: none. Patient reports right upper quadrant pain. States she had an ultrasound of her gallbladder done 2 and half weeks ago that showed cholelithiasis. States pain is increased so she came in to get checked today. Patient has appointment with Dr. Quesada scheduled for 15 May for this. Patient had a hernia repair [address] Quesada. 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 - Social history:: Smoking status: Patient denies any tobacco usage or history of. ROS: 23:20 Constitutional: Negative for fever, chills, and weight loss. kb 23:20 Abdomen/GI: Positive for abdominal pain, Negative for nausea, vomiting, and diarrhea. 23:20 All other systems are negative. Exam: 23:20 Constitutional: This is a well developed, well nourished patient who is awake, alert, kb and in no acute distress. Head/Face: Normocephalic, atraumatic. ENT: Moist Mucous membranes Cardiovascular: Regular rate and rhythm with a normal S1 and S2. No gallops, murmurs, or rubs. No pulse deficits. Respiratory: Respirations even and unlabored. No increased work of breathing. Talking in full sentences Skin: Warm, dry with normal turgor. Normal color. MS/ Extremity: Pulses equal, no cyanosis. Neurovascular intact. Full, normal range of motion. Neuro: Awake and alert, GCS 15, oriented to person, place, time, and situation. Moves all extremities. Normal gait. Psych: Awake, alert, with orientation to person, place and time. Behavior, mood, and affect are within normal limits. 23:20 Abdomen/GI: Inspection: abdomen appears normal, Bowel sounds: normal, in all quadrants, Palpation: soft, in all quadrants, moderate abdominal tenderness, in the right upper quadrant. Vital Signs: 19:25 BP 135 / 104; Pulse 111; Resp 18; Temp 97.8(TE); Pulse Ox 100% on R/A; Weight 51.71 kg bm7 (R); Height 5 ft. 0 in. (152.40 cm); Pain 8/10; 21:00 BP 124 / 78; Pulse 84; Resp 16; Pulse Ox 99% on R/A; hb 19:25 Body Mass Index 22.26 (51.71 kg, 152.40 cm) bm7 MDM: 19:32 Patient medically screened. kb 23:16 Data reviewed: vital signs, nurses notes. Data interpreted: Pulse oximetry: on room air kb is 99 %. Interpretation: normal. Counseling: I had a detailed discussion with the patient and/or guardian regarding: the historical points, exam findings, and any diagnostic results supporting the discharge/admit diagnosis, lab results, radiology results, the need for outpatient follow up, a general surgeon, to return to the emergency department if symptoms worsen or persist or if there are any questions or concerns that arise at home. 23:20 ED course: Pt has appt with surgeon on 05/15/22. kb 05/07 19:32 Order name: CBC with Diff; Complete Time: 20:00 kb 05/07 19:32 Order name: CMP; Complete Time: 20:21 kb 05/07 19:32 Order name: Lipase; Complete Time: 20:21 kb 05/07 19:32 Order name: Abdomen Limited US; Complete Time: 21:25 kb 05/07 19:52 Order name: Urine Dipstick-Ancillary; Complete Time: 19:53 EDMS 05/07 21:26 Order name: CT Abd/Pelvis - IV Contrast Only kb 05/07 19:32 Order name: IV Saline Lock; Complete Time: 19:46 kb 05/07 19:32 Order name: Labs collected and sent; Complete Time: 19:46 kb 05/07 19:32 Order name: Urine Dipstick-Ancillary (obtain specimen); Complete Time: 19:46 kb 05/07 21:30 Order name: Abdomen ; Complete Time: 23:04 EDMS Administered Medications: 21:04 Drug: Potassium Chloride 40 mEq Route: PO; hb 23:27 Follow up: Response: No adverse reaction ke1 Disposition Summary: 05/07/22 23:19 Discharge Ordered Location: Home kb Condition: Stable kb Diagnosis - Other cholelithiasis without obstruction kb Followup: kb - With: Emergency Department - When: As needed - Reason: Worsening of condition Followup: kb - With: Private Physician - When: 2 - 3 days - Reason: Recheck today's complaints, Continuance of care, Re-evaluation by your physician Discharge Instructions: - Discharge Summary Sheet kb - Cholelithiasis, [id number] kb Forms: - Medication Reconciliation Form kb - Thank You Letter kb - Antibiotic Education kb - Prescription Opioid Use kb Prescriptions: - Zofran 4 mg Oral Tablet - take 1 tablet by ORAL route every 12 hours As needed; 12 tablet; Refills: 0, kb Product Selection Permitted - dicyclomine 20 mg Oral Tablet - take 1 tablet by ORAL route 4 times per day As needed; 20 tablet; Refills: 0, kb Product Selection Permitted Signatures: Dispatcher [employer] EDMS Anna Collins, [facility] CLARKP-Mary Ellen Garcia, RN RN Tricia Bhardwaj, RN RN bm7 Kiana Urrutia RN ke1
[2022-05-08 02:16] VITALS: TEMP 97.8
[2022-05-08 02:18] VITALS: BP 124/78; O2SAT 99
== END 2022-05-07 23:28 | disposition home or self-care (01) ==
LOC: ER 19:02
DX: K80.80 Other cholelithiasis without obstruction (principal)
CPT/HCPCS: 85025; 36415; 81003; 83690; 80053; 74177; 76705; Q9967; 99284

== ENCOUNTER 2023-11-12 15:09 | Observation (INO) | payer OTHER ==
--- NOTE | 2023-11-12 16:21 | RAD REPORT ---
EXAM DESCRIPTION: [place] Single View11/12/2023 3:37 pm CLINICAL HISTORY: sob COMPARISON: 2019 FINDINGS: Area of subsegmental atelectasis left lung base. Remainder lungs appear clear of acute inf iltrate. The heart is normal size
[2023-11-12] MEDS ORDERED: ONDANSETRON 4 MG/2 ML VIAL ONE (18:34)
[2023-11-12] MEDS ORDERED: MORPHINE 4 MG/ML SYR ONE (18:35)
[2023-11-12 18:46] LABS: Absolute Lymphocytes (CBC) 1.5 K/uL (0.7-4.9); Hematocrit 35.9 % (36.0-45.0); Lymphocytes % 32.4 % (15.3-44.8); MCV 86.2 fL (80-100); MPV 6.4 fL (7.6-11.3); Platelets 241 thou/uL (152-406); RBC Red Blood Cell Count 4.16 M/uL (3.86-4.86)
[2023-11-12 18:50] LABS: Albumin 3.8 g/dL (3.4-5.0); Bilirubin Direct 0.1 mg/dL (0-0.2); Magnesium 1.9 mg/dL (1.6-2.4); Potassium 3.2 mEq/L (3.5-5.1)
[2023-11-12 18:56] LABS: Bilirubin Indirect, Calculated 0.2 mg/dL (0.2-0.8); Bilirubin Total 0.3 mg/dL (0.2-1.0); Protein, Total 6.8 g/dL (6.4-8.2); Troponin High Sensitivity 3.5 pg/mL (<58.9)
--- NOTE | 2023-11-12 19:24 | RAD REPORT ---
EXAM DESCRIPTION: US - Abdomen Exam Limited - 11/12/2023 3:57 pm CLINICAL HISTORY: Abdominal pain. COMPARISON: 2022 FINDINGS: The gallbladder wall is not thickened. Multiple small gallstones The biliary tree is normal caliber. IMPRESSION: Cholelithiasis without evidence of cholecystitis
--- NOTE | 2023-11-12 19:34 | ER ---
Nurse's Notes [facility] Name: Snehal De La Fuente Age: 53 yrs Sex: Female : 1970 Arrival Date: 11/12/2023 Time: 15:09 Bed 8 Private MD: Diagnosis: Epigastric abdominal tenderness;Other cholelithiasis without obstruction;Atelectasis;Hypokalemia;Unspecified cirrhosis of liver Presentation: 11/12 15:15 Chief complaint: Patient states: she was sent from her PCP for increased swelling ap3 around her abdomen. patient reports a 13lb weight gain since July, and increased SOB in the same time frame. patient states she does have a hx of needing a paracentesis (2017). Coronavirus screen: At this time, the client does not indicate any symptoms associated with coronavirus-19. Ebola Screen: No symptoms or risks identified at this time. Initial Sepsis Screen: Does the patient meet any 2 criteria? HR > 90 bpm. Risk Assessment: Do you want to hurt yourself or someone else? Patient reports no desire to harm self or others. Onset of symptoms is unknown. 15:15 Method Of Arrival: Ambulatory ap3 15:15 Acuity: EH 3 ap3 19:00 Initial Sepsis Screen: Does the patient have a suspected source of infection? No. jw7 Patient's initial sepsis screen is negative. Triage Assessment: 15:20 General: Appears in no apparent distress. Behavior is calm, cooperative, appropriate ap3 for age. Pain: Complains of pain in epigastric area and right upper quadrant Pain currently is 7 out of 10 on a pain scale. Pain began gradually. Neuro: Level of Consciousness is awake, alert, obeys commands, Oriented to person, place, time, situation, Appropriate for age. Cardiovascular: Patient's skin is warm and dry. Respiratory: Reports shortness of breath Airway is patent Respiratory effort is even, unlabored, Respiratory pattern is regular, symmetrical, Onset: The symptoms/episode began/occurred gradually, the patient has mild shortness of breath. GI: Abdomen is round Reports upper abdominal pain, nausea. Historical: - Allergies: 15:16 No Known Allergies; ap3 - PMHx: 15:16 Back pain; DDD; Umbilical hernia; ap3 - PSHx: 15:16 section; parasentesis (2018) ( section); ap3 - Immunization history:: Client reports having NOT received the Covid vaccine. Flu vaccine is not up to date. - Social history:: Smoking status: Patient denies any tobacco usage or history of. Patient uses alcohol, on a daily basis. glass of wine in the evenings. - Family history:: not pertinent. Screenin:21 [facility] ED Fall Risk Assessment (Adult) History of falling in the last 3 months, ap3 including since admission No falls in past 3 months (0 pts). Abuse screen: Denies threats or abuse. Nutritional screening: No deficits noted. Tuberculosis screening: No symptoms or risk factors identified. Assessment: 19:55 General: Appears comfortable, Behavior is calm, cooperative. Pain: Complains of pain in ha1 abdomen Pain does not radiate. Pain currently is 3 out of 10 on a pain scale. Quality of pain is described as crampy. Neuro: Level of Consciousness is awake, alert, obeys commands, Oriented to person, place, time, situation. Cardiovascular: Capillary refill < 3 seconds Patient's skin is warm and dry. Rhythm is sinus rhythm. Respiratory: Airway is patent Respiratory effort is even, unlabored, Respiratory pattern is regular, symmetrical, Breath sounds are clear bilaterally. Respiratory: Reports shortness of breath. GI: Abdomen is flat, non-distended, Bowel sounds present X 4 quads. Reports lower abdominal pain. Derm: Skin is pink, warm \T\ dry. Musculoskeletal: Circulation, motion, and sensation intact. Range of motion: intact in all extremities. 21:00 Reassessment: Patient appears in no apparent distress at this time. Patient and/or jw7 family updated on plan of care and expected duration. Pain level reassessed. Patient is alert, oriented x 3, equal unlabored respirations, skin warm/dry/pink. Patient states feeling better. Patient states symptoms have improved. Vital Signs: 15:15 BP 133 / 95; Pulse 111; Resp 18; Temp 98.1; Pulse Ox 100% ; Weight 57.15 kg; Height 5 ap3 ft. 1 in. ; Pain 7/10; 20:00 BP 138 / 102; Pulse 78; Resp 17 S; Pulse Ox 98% on R/A; ha1 21:00 BP 136 / 99; Pulse 80; Resp 17 S; Temp 97.9; Pulse Ox 97% on R/A; ha1 15:15 Body Mass Index 23.81 (57.15 kg, 154.94 cm) ap3 15:15 Pain Scale: Adult ap3 ED Course: 15:11 Patient arrived in ED. mg5 15:12 Byron Perez MD is Attending Physician. rt 15:16 Triage completed. ap3 15:21 Arm band placed on right wrist. ap3 15:38 XRAY Chest (1 view) In Process Unspecified. EDMS 16:00 US Abdomen Limited In Process Unspecified. EDMS 18:21 Attending Physician role handed off by Byron Perez MD cipriano 18:21 Pritesh Moreno MD is Attending Physician. cipriano 18:35 Initial lab(s) drawn, by nd, sent to lab. Inserted saline lock: 20 gauge in right cm10 antecubital area, using aseptic technique. Blood collected. 18:45 EKG done, by ED staff, reviewed by Pritesh Moreno MD. em1 19:00 Patient has correct armband on for positive identification. Bed in low position. Call jw7 light in reach. 19:03 IV discontinued, intact, bleeding controlled, No redness/swelling at site. Pressure cm10 dressing applied. 19:03 Missed attempt(s): 22 gauge in left forearm. cm10 19:32 Ricardo Braswell MD is Hospitalizing Provider. [facility] 19:32 Inserted saline lock: 22 gauge in right forearm, using aseptic technique. Blood jw7 collected. 19:45 Report given to ANGELIQUE Perez. cm10 20:07 CT Abd/Pelvis - IV Contrast Only In Process Unspecified. EDMS 21:58 Provided Education on: NEED FOR ADMIT. ha1 21:58 No provider procedures requiring assistance completed. ha1 Administered Medications: 19:33 Drug: morphine IVP or IV 4 mg IVP once over 4 mins Route: IVP; Infused Over: 4 mins; jw7 Site: right forearm; 19:55 Follow up: Response: No adverse reaction; Pain is decreased; RASS: Alert and Calm (0) ha1 19:33 Drug: Ondansetron IVP 4 mg IVP once; over 2 minutes Route: IVP; Site: right forearm; jw7 19:55 Follow up: Response: No adverse reaction; Marked relief of symptoms ha1 20:44 Drug: Famotidine IVP 20 mg IVP once; dilute with 10 mL 0.9% NaCl; give over 2 minutes jw7 Route: IVP; Site: right forearm; 21:00 Follow up: Response: No adverse reaction; Marked relief of symptoms ha1 20:44 Drug: Piperacillin-Tazobactam IVPB 3.375 grams IVPB once over 60 mins; (mix in NS 100 jw7 mL) Route: IVPB; Infused Over: 60 mins; Site: right forearm; 21:18 Follow up: Response: No adverse reaction; IV Status: Completed infusion; IV Intake: ha1 100ml 21:00 Drug: NS 0.9% with KCl IV 20 mEq/L 1000 ml IV at 125 ml/hr continuous Route: IV; Rate: ha1 125 ml/hr; Site: right forearm; Medication: 21:59 VIS not applicable for this client. ha1 Intake: 21:18 IV: 100ml; Total: 100ml. ha1 Outcome: 19:33 Decision to Hospitalize by Provider. cipriano 22:34 Patient left the ED. jb4 Signatures: Dispatcher [employer] EDPritesh Musa MD MD cha Martinez, Eric em1 Kevin Lamar RN RN jb4 Stefanie Garcia RN RN ap3 Kendal Keene RN RN jw7 Ana Alfonso RN RN ha1 Byron Perez MD MD rt Martinez, Clarissa, RN RN cm10 Allison Casiano mg5
--- NOTE | 2023-11-12 19:34 | EDPHYS ---
Physician Documentation [facility] Name: Snehal De La Fuente Age: 53 yrs Sex: Female : 1970 Arrival Date: 11/12/2023 Time: 15:09 Bed 8 Private MD: TATIANA Physician Pritesh Moreno HPI: 11/12 18:01 This 53 yrs old Female presents to ER via Ambulatory with complaints of Breathing rt Difficulty, Pain. 18:01 Patient presents to the ED with dyspnea, right upper quadrant pain. Patient was sent by rt primary care for the same. The patient states that she believes that she needs paracentesis at this time, 1 prior paracentesis years ago. Denies other acute complaints this time. Symptoms are moderate severity, no other aggravating or elevating factors.. Historical: - Allergies: 15:16 No Known Allergies; ap3 - PMHx: 15:16 Back pain; DDD; Umbilical hernia; ap3 - PSHx: 15:16 section; parasentesis (2018) ( section); ap3 - Immunization history:: Client reports having NOT received the Covid vaccine. Flu vaccine is not up to date. - Social history:: Smoking status: Patient denies any tobacco usage or history of. Patient uses alcohol, on a daily basis. glass of wine in the evenings. - Family history:: not pertinent. ROS: 18:01 Constitutional: Negative for fever, chills, and weight loss, Cardiovascular: Negative rt for chest pain, palpitations, and edema, MS/Extremity: Negative for injury and deformity, Skin: Negative for injury, rash, and discoloration, Neuro: Negative for headache, weakness, numbness, tingling, and seizure, Psych: Negative for depression, anxiety, suicide ideation, homicidal ideation, and hallucinations, 18:01 Respiratory: Positive for shortness of breath, Negative for cough, 18:01 Abdomen/GI: Positive for abdominal pain, Negative for vomiting, Exam: 18:01 Constitutional: This is a well developed, well nourished patient who is awake, alert, rt and in no acute distress. Head/Face: Normocephalic, atraumatic. Chest/axilla: Normal chest wall appearance and motion. Nontender with no deformity. No lesions are appreciated. Cardiovascular: Regular rate and rhythm with a normal S1 and S2. No gallops, murmurs, or rubs. Normal PMI, no JVD. No pulse deficits. Respiratory: Lungs have equal breath sounds bilaterally, clear to auscultation and percussion. No rales, rhonchi or wheezes noted. No increased work of breathing, no retractions or nasal flaring. Skin: Warm, dry with normal turgor. Normal color with no rashes, no lesions, and no evidence of cellulitis. MS/ Extremity: Pulses equal, no cyanosis. Neurovascular intact. Full, normal range of motion. Neuro: Awake and alert, GCS 15, oriented to person, place, time, and situation. Cranial nerves II-XII grossly intact. Motor strength 5/5 in all extremities. Sensory grossly intact. Cerebellar exam normal. Normal gait. Psych: Awake, alert, with orientation to person, place and time. Behavior, mood, and affect are within normal limits. 18:01 Abdomen/GI: Tenderness to the right upper quadrant without rebound, guarding, distention, 19:42 ECG was reviewed by the Attending Physician. [facility] Vital Signs: 15:15 BP 133 / 95; Pulse 111; Resp 18; Temp 98.1; Pulse Ox 100% ; Weight 57.15 kg; Height 5 ap3 ft. 1 in. ; Pain 7/10; 20:00 BP 138 / 102; Pulse 78; Resp 17 S; Pulse Ox 98% on R/A; ha1 21:00 BP 136 / 99; Pulse 80; Resp 17 S; Temp 97.9; Pulse Ox 97% on R/A; ha1 15:15 Body Mass Index 23.81 (57.15 kg, 154.94 cm) ap3 15:15 Pain Scale: Adult ap3 MDM: 15:23 Patient medically screened. rt 19:40 Differential diagnosis: Anxiety Reaction asthma, Bronchitis CHF exacerbation, Chronic cipriano Obstructive Pulmonary Disease pneumonia, Pneumothorax pulmonary edema, Pulmonary Embolism reactive airway disease, Unstable Angina. Antibiotic administration: ZOSYN. Immunization status: Influenza vaccine: Data reviewed: vital signs, nurses notes, lab test result(s), EKG, radiologic studies, plain films, ultrasound. Consideration of Admission/Observation Patient was admitted/placed on observation. Escalation of care including admission/observation considered. I considered the following discharge prescriptions or medication management in the emergency department Medications were administered in the Emergency Department. See MAR. Independent interpretation of the following test(s) in the Emergency Department EKG: See my EKG interpretation above. Test considered but Not performed: CT: NO CT CHEST RO PE. Historians other than the Patient: Spouse/Significant Other: WELL INFORMED. Care significantly affected by the following chronic conditions: Chronic Kidney Disease, DDD, UMBILICAL HERNIA, BACK PAIN. Counseling: I had a detailed discussion with the patient and/or guardian regarding the historical points, exam findings, and any diagnostic results supporting the discharge/admit diagnosis, the presence of at least one elevated blood pressure reading (>120/80) during this emergency department visit, lab results, radiology results, the need for further work-up and treatment in the hospital. 11/12 15:23 Order name: Basic Metabolic Panel; Complete Time: 19:21 11/12 15:23 Order name: CBC with Diff; Complete Time: 19:21 11/12 15:23 Order name: LFT's; Complete Time: 19:21 11/12 15:23 Order name: Magnesium; Complete Time: 19:21 11/12 15:23 Order name: NT PRO-BNP; Complete Time: 19:21 11/12 15:23 Order name: Troponin HS; Complete Time: 19:21 11/12 18:21 Order name: AMMONIA; Complete Time: 19:51 [facility] 11/12 19:31 Order name: Lipase [facility] 11/12 19:32 Order name: PT-INR [facility] 11/12 19:47 Order name: Troponin High Sensitivity: NOW [facility] 11/12 21:07 Order name: Urinalysis w/ reflexes [facility] 11/12 15:23 Order name: XRAY Chest (1 view); Complete Time: 16:51 11/12 15:23 Order name: US Abdomen Limited; Complete Time: 19:29 11/12 19:31 Order name: CT Abd/Pelvis - IV Contrast Only; Complete Time: 20:36 [facility] 11/12 15:23 Order name: EKG; Complete Time: 15:24 11/12 21:07 Order name: CONS Physician Consult [facility] 11/12 21:07 Order name: CONS Physician Consult [facility] 11/12 15:23 Order name: Cardiac monitoring; Complete Time: 18:38 11/12 15:23 Order name: EKG - Nurse/Tech; Complete Time: 18:45 11/12 15:23 Order name: IV Saline Lock; Complete Time: 18:38 rt 11/12 15:23 Order name: Labs collected and sent; Complete Time: 18:38 rt 11/12 15:23 Order name: O2 Per Protocol; Complete Time: 18:38 rt 11/12 15:23 Order name: O2 Sat Monitoring; Complete Time: 18:38 rt EC:42 Rate is 868 beats/min. Rhythm is regular. QRS [place] is Normal. [place] interval is normal. cipriano QRS interval is normal. QT interval is normal. No Q waves. T waves are Normal. T waves are Inverted in leads II, III, aVF, V1, V3, V4, V5, V6. No ST changes noted. Clinical impression: NSR w/ Non-specific ST/T Changes. Interpreted by me. Reviewed by me. Administered Medications: 19:33 Drug: morphine IVP or IV 4 mg IVP once over 4 mins Route: IVP; Infused Over: 4 mins; jw7 Site: right forearm; 19:55 Follow up: Response: No adverse reaction; Pain is decreased; RASS: Alert and Calm (0) ha1 19:33 Drug: Ondansetron IVP 4 mg IVP once; over 2 minutes Route: IVP; Site: right forearm; jw7 19:55 Follow up: Response: No adverse reaction; Marked relief of symptoms ha1 20:44 Drug: Famotidine IVP 20 mg IVP once; dilute with 10 mL 0.9% NaCl; give over 2 minutes jw7 Route: IVP; Site: right forearm; 21:00 Follow up: Response: No adverse reaction; Marked relief of symptoms ha1 20:44 Drug: Piperacillin-Tazobactam IVPB 3.375 grams IVPB once over 60 mins; (mix in NS 100 jw7 mL) Route: IVPB; Infused Over: 60 mins; Site: right forearm; 21:18 Follow up: Response: No adverse reaction; IV Status: Completed infusion; IV Intake: ha1 100ml 21:00 Drug: NS 0.9% with KCl IV 20 mEq/L 1000 ml IV at 125 ml/hr continuous Route: IV; Rate: ha1 125 ml/hr; Site: right forearm; Disposition Summary: 11/12/23 19:33 Hospitalization Ordered Notes: Hospitalization Status: Observation cipriano Provider: Omitogun, Ricardo cipriano Location: Telemetry/MedSurg (observation) cipriano Condition: Fair cipriano Problem: new cipriano Symptoms: have improved cipriano Bed/Room Type: Standard [facility] Room Assignment: 416(11/12/23 21:48) jb4 Diagnosis - Epigastric abdominal tenderness cipriano - Other cholelithiasis without obstruction cipriano - Atelectasis cipriano - Hypokalemia cipriano - Unspecified cirrhosis of liver cipriano Forms: - Medication Reconciliation Form cipriano - SBAR form cipriano - Leadership Thank You Letter cipriano Signatures: Dispatcher [employer] EDPritesh Msua MD MD cha Bryson, James RN RN jb4 Stefanie Garcia RN RN ap3 Kendal Keene RN RN jw7 Ana Alfonso RN RN ha1 Byron Perez MD MD rt Corrections: (The following items were deleted from the chart) 21:48 19:33 cipriano jb4
[2023-11-12] MEDS ORDERED: NA CHLORIDE 0.9% 100 ML ONE (19:42)
[2023-11-12] MEDS ORDERED: FAMOTIDINE 20 MG/2 ML VIAL IV ONE (19:42)
[2023-11-12] MEDS ORDERED: PIPERACIL/TAZO 3.375 GM VIAL IV ONE (19:42)
[2023-11-12] MEDS ORDERED: NS KCL 20MEQ 1,000 ML IV ONE (19:43)
--- NOTE | 2023-11-12 20:23 | RAD REPORT ---
EXAM DESCRIPTION: CT - Abdomen Pelvis W Contrast - 11/12/2023 8:05 pm CLINICAL HISTORY: Abdominal pain COMPARISON: 2021 TECHNIQUE: Computed axial tomography of the abdomen pelvis was obtained. 100 cc Isovue-300 was admin istered intravenously. Oral contrast was not requested which limits evaluation of bowel and appendix All CT scans are performed using dose optimization technique as appropriate and may include automated exposure control or mA/KV adjustment according to patient size. FINDINGS: A cirrhotic liver. Couple of tiny nonspecific low-density lesions. Prominent portal vein w hich is patent. The spleen, pancreas and adrenals unremarkable Mild renal cortical thinning. Postsurgical changes umbilical hernia repair Gallstones without gallbladder wall thickening. H shaped vertebra can be seen with sickle cell anemia and osteoporosis No adnexal mass IMPRESSION: Cirrhosis Cholelithiasis without evidence of cholecystitis
[2023-11-12 20:51] LABS: Protime INR 1.1
[2023-11-12] MEDS ORDERED: ACETAMINOPHEN 325 MG TABLET PO PRN (21:02)
[2023-11-12] MEDS ORDERED: ONDANSETRON 4 MG/2 ML VIAL IV PRN (21:02)
--- NOTE | 2023-11-12 21:07 | P.HP ---
Certification for Inpatient Patient admitted to: Observation With expected LOS: <2 Midnights Practitioner: I am a practitioner with admitting privileges, knowledge of patient current condition, hospital course, and medical plan of care. Services: Services provided to patient in accordance with Admission requirements found in Title 42 Section 412.3 of the Code of Federal Regulations Patient History Date of Service: 11/13/23 Reason for admission: Abdominal pain, cholelithiasis History of Present Illness: 53-year-old female patient with medical history significant for anxiety, hypothyroidism, hypertension who was evaluated for episode of abdominal pain. She was worked up in the emergency room was found to have gallstones and suspicion for cholecystitis. she was admitted for surgeon evaluation. She was also found to have elevated creatinine of 1.5. Allergies msg Allergy (Uncoded 04/25/22 15:12) Hives Home Medications: Alendronate Sodium [Fosamax] 70 mg PO EVERY 7TH DAY 04/25/22 Gabapentin [Neurontin] 400 mg PO BID 04/25/22 Levothyroxine Sodium [Levothyroxine] 75 mcg PO DAILY 04/25/22 Linaclotide [Linzess] 290 mcg PO DAILY 04/25/22 Metoprolol Succinate [Toprol Xl] 25 mg PO DAILY 04/25/22 Quetiapine Fumarate [Seroquel] 50 mg PO DAILY 04/25/22 Albuterol Sulfate [Albuterol Sulfate Hfa] 2 puff IH Q4H PRN 11/12/23 Buspirone HCl [Buspar] 10 mg PO BID 11/12/23 Hydroxyzine HCl [Atarax] 50 mg PO TID 11/12/23 Pantoprazole [Protonix Tab] 40 mg PO DAILY 11/12/23 Quetiapine Fumarate [Seroquel] 300 mg PO BEDTIME 11/12/23 Review of Systems General: Malaise Eyes: Unremarkable ENT: Unremarkable Respiratory: Unremarkable Cardiovascular: Unremarkable Gastrointestinal: Abdominal Pain Genitourinary: Unremarkable Musculoskeletal: Unremarkable Integumentary: Unremarkable Neurological: Unremarkable Lymphatics: Unremarkable Physical Examination - Physical Exam General: Alert, Oriented x3 HEENT: Atraumatic Neck: Supple Respiratory: Normal air movement Cardiovascular: Regular rate/rhythm, Normal S1 S2 Gastrointestinal: Soft and benign Musculoskeletal: No swelling Neurological: Normal speech, Normal strength at 5/5 x4 extr - Studies Laboratory Data (last 24 hrs) 11/12/23 11/12/23 11/12/23 20:32 18:30 18:30 WBC 4.50 Hgb 12.1 Hct 35.9 L Plt Count 241 PT 12.1 INR 1.10 Sodium 140 Potassium 3.2 L BUN 11 Creatinine 0.92 Glucose 107 H Magnesium 1.9 Total Bilirubin 0.3 AST 21 ALT 38 Alkaline Phosphatase 71 Assessment and Plan - Plan Cholelithiasis/cholecystitis: Patient has been started n.p.o. status. IV Zosyn started for possible suspicion for infectious process. Morphine started for pain control. Surgeon consulted for management recommendation Hypertension: We will continue antihypertensive medication and monitor vital signs per unit protocol. Hypothyroidism: We will continue levothyroxine dose. Prophylaxis: Will continue Lovenox for DVT prophylaxis. CODE STATUS: Full code. Disposition: We will treat her cholelithiasis/cholecystitis episode and discharge her when she is cleared by surgical service. - Advance Directives Does patient have a Living Will: No Does patient have a Durable POA for Healthcare: No
[2023-11-12 23:08] VITALS: BMI 23.8
[2023-11-12] MEDS: NA CHLORIDE 0.9% 1,000 ML IV SCH (23:14)
[2023-11-12 23:32] VITALS: O2SAT 97
[2023-11-12] MEDS: QUETIAPINE 100MG TAB PO SCH (23:49)
[2023-11-13] MEDS: PIPER TAZO 3.375 GM in NA CHLORIDE 0.9% 100 ML IV SCH (01:13)
[2023-11-13] MEDS: INFLUENZA VACCINE (for 6+ mo) 0.5 ML DOSE IMVAC ONE (08:00)
[2023-11-13 09:00] LABS: Specific Gravity > 1.030 (1.005-1.030); Urine Bacteria None Seen /HPF (<20); Urine Bilirubin NEGATIVE (Negative); Urine Blood Negative (Negative); Urine Clarity Clear (Clear); Urine Color Light-Yellow (Yellow); Urine Glucose NEGATIVE (Negative); Urine Protein NEGATIVE (Negative); Urine RBC <5 /HPF (None Seen); Urine Urobilinogen Normal (Normal); Urine pH 5.5 (5.0-7.0)
[2023-11-13] MEDS: ENOXAPARIN 40 MG/0.4 ML SQ SCH (09:00)
[2023-11-13] MEDS: MORPHINE 2 MG/ML SYR IV PRN (09:49)
[2023-11-13] MEDS ORDERED: ALBUTEROL INHALER 200 PUFF/6.7 GM IH PRN (11:55)
[2023-11-13] MEDS: hydrOXYzine HCL 25 MG TAB PO SCH (14:40)
--- NOTE | 2023-11-13 15:48 | EKG ---
Test Date: 2023-11-12 Test Time: 18:41:18 Blender Machine Operator: JUAN MEASUREMENT RESULTS: Intervals: Rate: 86 VT: 154 QRSD: 82 QT: 408 QTc: 488 [place]: P: 56 VT: 154 QRS: 51 T: 6 INTERPRETIVE STATEMENTS: Sinus rhythm with occasional premature ventricular complexes Low voltage QRS Borderline ECG No previous ECG available for comparison Electronically Signed On 11-13-23 15:46:17 MANAGER [employer]ELD [employer]VESTIGATIONS by Ricky Duong
[2023-11-13 16:34] VITALS: BP 133/71; TEMP 97.1
[2023-11-13] MEDS ORDERED: GABAPENTIN 400 MG CAP PO SCH (21:00)
[2023-11-13] MEDS ORDERED: QUETIAPINE 100MG TAB PO SCH (21:00)
[2023-11-13] MEDS ORDERED: BUSPIRONE HCL 5 MG TABLET PO SCH (21:00)
[2023-11-14] MEDS ORDERED: LEVOTHYROXINE SOD 0.075 MG TAB PO SCH (06:30)
[2023-11-14] MEDS ORDERED: HOME MED 1 EA UNK (Linaclotide [Linzess] 290 MCG Capsule) PO SCH (09:00)
[2023-11-14] MEDS ORDERED: QUETIAPINE 25 MG TAB PO SCH (09:00)
[2023-11-14] MEDS ORDERED: METOPROLOL XL 25 MG TAB PO SCH (09:00)
[2023-11-14] MEDS ORDERED: PANTOPRAZOLE 40MG TABLET PO SCH (09:00)
== END 2023-11-13 17:01 | disposition home or self-care (01) ==
LOC: ER 15:09 → ERHOLD 21:02 → 4TH 22:01
PROVIDERS: ADMIT Internal Medicine Nephrology; ATTEND Hospitalist
DX: K80.20 Calculus of gallbladder without cholecystitis without obstruction (principal); I10 Essential (primary) hypertension; E03.9 Hypothyroidism, unspecified; J98.11 Atelectasis; E87.6 Hypokalemia; K74.60 Unspecified cirrhosis of liver
CPT/HCPCS: 96365; 93005; 85025; 81001; 80048; 36415; 82140; 83735; 85610; 80076; 84484 ×2; 83690; 83880; 74177; 71045; 76705; 96375; 99284; Q9967; J2543 ×3; J2270; J2405; J7030; J3480; G0378; J1650

== ENCOUNTER 2024-03-11 14:15 | Emergency (ER) | payer OTHER ==
[2024-03-11] MEDS ORDERED: HYDROCODONE/APAP 5/325 MG TAB ONE (14:41)
[2024-03-11] MEDS ORDERED: TDAP (DIPHTH,PERTUSS(ACELL),TET VAC) 0.5 ML VIAL IMVAC ONE (14:42)
--- NOTE | 2024-03-11 14:55 | ER ---
Nurse's Notes [facility] Name: Snehal De La Fuente Age: 54 yrs Sex: Female : 1970 Arrival Date: 03/11/2024 Time: 14:15 Bed Treatment Private MD: Diagnosis: Laceration without foreign body of right thumb without damage to nail, initial encounter Presentation: 03/11 14:33 Chief complaint: Patient states: "I was washing my car and the hose attachment came off mb9 and cut my right thumb. I haven't had a tetanus shot in 10 years.". Coronavirus screen: At this time, the client does not indicate any symptoms associated with coronavirus-19. Ebola Screen: No symptoms or risks identified at this time. Initial Sepsis Screen: Does the patient meet any 2 criteria? No. Patient's initial sepsis screen is negative. Does the patient have a suspected source of infection? No. Patient's initial sepsis screen is negative. Risk Assessment: Do you want to hurt yourself or someone else? Patient reports no desire to harm self or others. Onset of symptoms was March 11, 2024. 14:33 Acuity: EH 4 mb9 14:33 Method Of Arrival: Ambulatory mb9 Triage Assessment: 14:34 General: Appears in no apparent distress. Behavior is calm, cooperative. Pain: mb9 Complains of pain in right hand. EENT: No signs and/or symptoms were reported regarding the EENT system. Neuro: Hope Agitation-Sedation Scale (RASS): 0 - Alert and Calm Level of Consciousness is awake, alert, obeys commands, Oriented to person, place, time, situation, Appropriate for age. Cardiovascular: Patient's skin is warm and dry. Respiratory: Airway is patent. Musculoskeletal: Range of motion: intact in all extremities. Injury Description: Laceration sustained to palmar aspect of distal phalanx of right thumb is jagged, superficial, not bleeding. Historical: - Allergies: 14:34 No Known Allergies; mb9 - Home Meds: 14:34 None [Active]; mb9 - PMHx: 14:34 Back pain; Umbilical hernia; DDD; mb9 - PSHx: 14:34 section; parasentesis (2018) (an); mb9 - Immunization history:: Last tetanus immunization: < 10 years ago. - Infectious Disease History:: Denies. - Social history:: Smoking status: Patient denies any tobacco usage or history of. Screenin:30 [facility] ED Fall Risk Assessment (Adult) History of falling in the last 3 months, rs5 including since admission No falls in past 3 months (0 pts) Confusion or Disorientation No (0 pts) Intoxicated or Sedated No (0 pts) Impaired Gait No (0 pts) Mobility Assist Device Used No (0 pt) Altered Elimination No (0 pt) Score/Fall Risk Level 0 - 2 = Low Risk Oriented to surroundings, Maintained a safe environment. 14:30 Abuse screen: Denies threats or abuse. Nutritional screening: No deficits noted. rs5 Tuberculosis screening: No symptoms or risk factors identified. Assessment: 14:30 General: Appears in no apparent distress. uncomfortable, Behavior is calm, cooperative. rs5 Pain: Complains of pain in right thumb Pain currently is 8 out of 10 on a pain scale. Quality of pain is described as aching, Is continuous. Neuro: Level of Consciousness is awake, alert, obeys commands, Oriented to person, place, time, situation. Cardiovascular: Patient's skin is warm and dry. Respiratory: Airway is patent Respiratory effort is even, unlabored, Respiratory pattern is regular, symmetrical. GI: Abdomen is round non-distended. : No signs and/or symptoms were reported regarding the genitourinary system. EENT: No signs and/or symptoms were reported regarding the EENT system. Derm: No signs and/or symptoms reported regarding the dermatologic system. Derm: abrasion noted to tip of right thumb, no active bleeding noted. Musculoskeletal: Range of motion: limited in right hand. 14:33 Reassessment: provider notified of elevated pulse . rs5 14:56 Reassessment: to bedside for wound care, abrasion to right thumb cleansed with rs5 Betadine, wrapped with gauze and secured with tape per MD orders, pt tolerated wound care well. 15:20 Reassessment: Patient and/or family updated on plan of care and expected duration. Pain rs5 level reassessed. Patient is alert, oriented x 3, equal unlabored respirations, skin warm/dry/pink. Vital Signs: 14:33 BP 120 / 98; Pulse 120; Resp 18; Temp 98; Pulse Ox 100% on R/A; Weight 54.43 kg; Height mb9 5 ft. 3 in. ; Pain 10/10; 14:57 BP 126 / 91; Pulse 117; Resp 17; Pulse Ox 99% on R/A; rs5 15:20 BP 122 / 88; Pulse 88; Resp 17; Pulse Ox 99% on R/A; rs5 14:33 Body Mass Index 21.26 (54.43 kg, 160.02 cm) mb9 14:33 Pain Scale: Adult mb9 ED Course: 14:18 Patient arrived in ED. mr 14:22 Mayuri Brar PA-C is PHCP. sb4 14:22 Pancho Clarke DO is Attending Physician. sb4 14:30 Patient has correct armband on for positive identification. Placed in gown. Bed in low rs5 position. Call light in reach. Side rails up X2. 14:30 No provider procedures requiring assistance completed. rs5 14:34 Triage completed. mb9 14:34 Arm band placed on. mb9 14:39 Mele West, RN is Primary Nurse. rs5 15:20 Patient did not have IV access during this emergency room visit. rs5 Administered Medications: 14:45 Drug: HYDROcodone-acetaminophen PO 5 mg-325 mg 1 tabs PO once Route: PO; rs5 15:10 Follow up: Response: No adverse reaction rs5 14:45 Drug: Boostrix Tdap IM 0.5 ml IM once; as a single dose Route: IM; Site: left deltoid; rs5 15:10 Follow up: Response: No adverse reaction rs5 Medication: 14:57 VIS not applicable for this client. rs5 Outcome: 14:55 Discharge ordered by . sb4 15:20 Discharged to home ambulatory, rs5 15:20 Condition: stable 15:20 Discharge instructions given to patient, family, Instructed on discharge instructions, follow up and referral plans. medication usage, Demonstrated understanding of instructions, follow-up care, medications, Prescriptions given X 2, 15:27 Patient left the ED. as6 Signatures: Rebeca Mcmanus, Alex Johnson ToddronaAden RN RN as6 Mayuri Brar PA-C PA-C sb4 Rebeca Wallis RN RN mb9 Mele West, ANGELIQUE RN rs5
--- NOTE | 2024-03-11 14:56 | EDPHYS ---
Physician Documentation [facility] Name: Snehal De La Fuente Age: 54 yrs Sex: Female : 1970 Arrival Date: 03/11/2024 Time: 14:15 Bed Treatment Private MD: ED Physician Pancho Clarke HPI: 03/11 14:33 This 54 yrs old Female presents to ER via Unassigned with complaints of Thumb sb4 laceration. 14:33 The patient has a laceration occurred at home, and there are no complicating factors. sb4 The injury was accidental. The laceration(s) is(are) located on the palmar aspect of distal phalanx of right thumb. Onset: The symptoms/episode began/occurred just prior to arrival. Associated signs and symptoms: The patient has no apparent associated signs or symptoms. The patient has not experienced similar symptoms in the past. The patient has not recently seen a physician. Historical: - Allergies: 14:34 No Known Allergies; mb9 - Home Meds: 14:34 None [Active]; mb9 - PMHx: 14:34 Back pain; Umbilical hernia; DDD; mb9 - PSHx: 14:34 section; parasentesis (2018) (an); mb9 - Immunization history:: Last tetanus immunization: < 10 years ago. - Infectious Disease History:: Denies. - Social history:: Smoking status: Patient denies any tobacco usage or history of. ROS: 14:33 Constitutional: Negative for fever, chills, and weight loss, sb4 14:33 Skin: Positive for laceration(s), 14:33 All other systems are negative, Exam: 14:33 Head/Face: Normocephalic, atraumatic. Eyes: Extra-ocular motions intact. Periorbital sb4 areas with no swelling, redness, or edema. ENT: Mucous membranes moist. 14:33 Constitutional: The patient appears alert, awake, anxious, 14:33 Skin: injury, laceration(s), the wound is approximately .5 cm(s), with a depth of .2 cm(s), of the palmar aspect of distal phalanx of right thumb, that can be described as clean, no foreign body, linear, without bleeding, Vital Signs: 14:33 BP 120 / 98; Pulse 120; Resp 18; Temp 98; Pulse Ox 100% on R/A; Weight 54.43 kg; Height mb9 5 ft. 3 in. ; Pain 10/10; 14:57 BP 126 / 91; Pulse 117; Resp 17; Pulse Ox 99% on R/A; rs5 15:20 BP 122 / 88; Pulse 88; Resp 17; Pulse Ox 99% on R/A; rs5 14:33 Body Mass Index 21.26 (54.43 kg, 160.02 cm) mb9 14:33 Pain Scale: Adult mb9 MDM: 14:23 Patient medically screened. sb4 14:33 Data reviewed: vital signs, nurses notes, and as a result, I will discharge patient. ED sb4 course: laceration is very minimal, does not require repair, will heal by secondary intention. 03/11 14:33 Order name: Wound Care; Complete Time: 14:54 sb4 03/11 14:33 Order name: Wound dressing; Complete Time: 14:54 sb4 Administered Medications: 14:45 Drug: HYDROcodone-acetaminophen PO 5 mg-325 mg 1 tabs PO once Route: PO; rs5 15:10 Follow up: Response: No adverse reaction rs5 14:45 Drug: Boostrix Tdap IM 0.5 ml IM once; as a single dose Route: IM; Site: left deltoid; rs5 15:10 Follow up: Response: No adverse reaction rs5 Disposition: 15:14 I was immediately available on-site in the Emergency Department for consultation in the ms3 care of the patient. Disposition Summary: 03/11/24 14:55 Discharge Ordered Notes: Location: Home sb4 Problem: new sb4 Symptoms: have improved sb4 Condition: Stable sb4 Diagnosis - Laceration without foreign body of right thumb without damage to nail, initial sb4 encounter Followup: sb4 - With: Private Physician - When: As needed - Reason: Recheck today's complaints, Re-evaluation by your physician Discharge Instructions: - Discharge Summary Sheet sb4 - Nonsutured Laceration Care sb4 Forms: - Patient Portal Instructions sb4 - Leadership Thank You Letter sb4 Signatures: Pancho Clarke DO DO ms3 Mayuri Brar PA-C PA-C sb4 Rebeca Wallis RN RN mb9 Mele West RN RN rs5
[2024-03-11 15:44] VITALS: BP 126/91; TEMP 98; O2SAT 99
== END 2024-03-11 15:27 | disposition home or self-care (01) ==
LOC: ER 14:15
DX: S61.011A Laceration without foreign body of right thumb without damage to nail, initial encounter (principal)